=== PATIENT | male | born 1970 | race Asian ===

== ENCOUNTER 2017-12-09 13:22 | Inpatient (IN) | payer MEDICAID ==
[~2017-12-09] VITALS: Ht 182.9 cm; Wt 87.1 kg
[~2017-12-09 13:22] MED LIST: ACET-8331 PO; ACET-8386 PO; ASCO500T45 PO; ASPI81CT89 PO; ATOR20TA PO; FERR325E14 PO; LEVE250T2 PO; MIRABULK PO; SENN8.6T70 PO; ZINC220C12 PO; [UNRECOGNIZED DRUG - CODE] PO; [UNRECOGNIZED DRUG - CODE] PO; [UNRECOGNIZED DRUG - CODE] PO
[2017-12-09 13:38] VITALS: BP 130/83
--- NOTE | 2017-12-09 13:38 | NUR ---
PT TRANSFERRED PT FROM [facility] TO ER BED 1.
--- NOTE | 2017-12-09 13:50 | NUR ---
PATIENT BIBA C/O RT FEMORAL VEIN DVT x 3 DAYS. EMS STATES PT WAS REFFERED BY DR. ERWIN FROM [facility]. HX: STAGE 4 LUNG AND BRAIN CANCER, SACRAL WOUND . D AAOX4; LUNGS CLEAR BL; HR EVEN AND REGULAR; PT DENIES ANY FEVER, CP, SOB, OR COUGH AT THIS TIME; DENIES N/V/D; SKIN IS PINK/WARM/DRY; OPEN WOUND TO SACRAL AREA NOTED, PARAPLEGIA NOTED, INCONTINENT, PATIENT STATES PAIN OF 10/10 TO UPPER BODY AT THIS TIME; VSS; PATIENT POSITIONED FOR COMFORT; HOB ELEVATED; BEDRAILS UP X2; BED DOWN. ER MD MADE AWARE OF PT STATUS.
[2017-12-09] MEDS ORDERED: NACL 0.9% 1,500 ML IV SCH (14:39)
[2017-12-09] MEDS ORDERED: diphenhydrAMINE 50 MG/ML VIAL IVP ONE (14:40)
[2017-12-09] MEDS ORDERED: PIPERACILLIN/TAZOBACTAM 3.375 GM in DEXT 5% MINI-BAG PLUS 50 ML IV ONE (14:40)
[2017-12-09] MEDS ORDERED: fentaNYL 0.05 MG/ML VIAL IVP ONE (14:40)
--- NOTE | 2017-12-09 15:12 | NUR ---
US AT BEDSIDE
[2017-12-09] MEDS ORDERED: PIPERACILLIN/TAZOBACTAM 3.375 GM VIAL IV ONE (15:18)
[2017-12-09 15:31] LABS: APPEARANCE,URINE SL CLOUDY (CLEAR); BILIRUBIN,URINE NEGATIVE (NEGATIVE); BLOOD, URINE 3+ (NEGATIVE); COLOR,URINE YELLOW (YELLOW); LEUKOCYTE ESTERASE ,URINE 3+ (NEGATIVE); NITRITE, URINE POSITIVE (NEGATIVE); UGLUCOSE NEGATIVE (NEGATIVE)
[2017-12-09 15:41] LABS: WHITE BLOOD COUNT (AUTO) 16.4 K/uL (4.8-10.8)
[2017-12-09 15:44] LABS: HEMOGLOBIN 10.8 g/dL (12.0-18.0); RED BLOOD CELL COUNT(AUTO) 3.87 MIL/uL (4.20-6.10)
[2017-12-09 15:45] LABS: HEMATOCRIT 33.7 % (36-52); MEAN CORPUSCULAR HEMOGLOBIN 28 pg (27-31); MEAN CORPUSCULAR HGB CONC 32 g/dL (33-37); MEAN CORPUSCULAR VOLUME 87.1 fL (80-94); NEUTROPHILS # (AUTO) 14.3 K/uL (1.8-7.7); PLATELET COUNT (AUTO) 326 K/uL (140-450); RED CELL DISTRIBUTION WIDTH 18.7 % (11.6-13.7)
[2017-12-09 15:46] LABS: BASOPHILS # (AUTO) 0.5 K/uL (0.00-0.22); LYMPHOCYTES # (AUTO) 1.2 K/uL (2.0-11.5); MONOCYTES # (AUTO) 0.4 K/uL (0.8-1.0)
[2017-12-09 15:55] LABS: ALBUMIN 2.6 g/dL (3.4-5.0); CREATININE 0.7 mg/dL (0.7-1.3); TOTAL BILIRUBIN 0.4 mg/dL (0.0-1.0)
[2017-12-09 16:07] LABS: POTASSIUM 2.6 mmol/L (3.5-5.1)
--- NOTE | 2017-12-09 16:10 | NUR ---
CRITICAL LAB K 2.6, DR. FRANCOIS MADE AWARE.
[2017-12-09 16:11] LABS: PROTHROMBIN TIME 10.2 secs (10.8-13.4)
[2017-12-09 16:12] LABS: ANION GAP 16.4 (8-16); CARBON DIOXIDE 27.2 mmol/L (21-32)
[2017-12-09] MEDS ORDERED: HYDROmorphone 1 MG/ML AMP IVP ONE (16:30)
[2017-12-09] MEDS ORDERED: DOCUSATE SODIUM 100 MG GELCAP PO PRN (16:50)
[2017-12-09] MEDS ORDERED: LORazepam 2 MG/ML VIAL IM/IVP PRN (16:50)
[2017-12-09] MEDS ORDERED: ZOLPIDEM 5 MG TAB PO PRN (16:50)
[2017-12-09] MEDS ORDERED: PIPERACILLIN/TAZOBACTAM 3.375 GM in DEXTROSE 5% 50 ML IV ONE (16:50)
[2017-12-09] MEDS ORDERED: MORPHINE SULFATE 2 MG/ML SYR IVP PRN ×2 (16:50→18:55)
[2017-12-09] MEDS ORDERED: HYDROcodone/APAP 5/325 MG 1 TAB TAB PO PRN (16:50)
[2017-12-09] MEDS ORDERED: ONDANSETRON 4 MG/2 ML VIAL IM/IVP PRN (16:50)
[2017-12-09] MEDS ORDERED: DEXT 5% / NACL 0.45% 1,000 ML IV ONE (17:00)
--- NOTE | 2017-12-09 17:25 | NUR ---
PT ARRIVED ON THE UNIT WITH 2 ER NURSES. PT IS AWAKE AND ORIENTED. INTRODUCED MYSELF. PT IS QUADRAPLEGIC. PT V/S WITHIN NORMAL RANGE. PT HAS PAIN 10/10. PT IS ON ROOM AIR. IV ON L HAND 22G. PT HAS A LAMB CATHETER THAT HE CAME WITH FROM FACILITY PUT IN ON 12/08. HUGE SACRAL PU STAGE 4. PT IS ACCOMPANIED BY SISTER. DR ALEJANDRA IS HERE TO ASSESS PT. ASKED FOR REPLACEMENT OF LAMB CATH. RECTAL TUBE. PT IS IMPACTED, WILL NEED TO DO SOAP SUDS ENEMA FIRST. WILL ENDORSE TO BAND RIPSAW OPERATOR. WILL AWAIT ORDERS.
--- NOTE | 2017-12-09 17:30 | NUR ---
Patient will be admitted to care of DR. BERRIOS. Admited to TELE. Will go to room 110 B. Belongings list completed. Report to SYEDA NAIR AT BEDSIDE, PT IS IN STABLE CONDITION AT THIS TIME.
[2017-12-09 17:50] VITALS: BP 133/86
[2017-12-09] MEDS ORDERED: NACL 0.9% 1,000 ML IV SCH (18:00)
[2017-12-09 18:10] LABS: RBC,URINE 20-50 /HPF (0-5)
[2017-12-09] MEDS ORDERED: HEPARIN PER PHARMACY MC PRN (18:25)
[2017-12-09] MEDS: hePARIN / DEXT 5% PREMIX 250 ML IV SCH (18:55)
--- NOTE | 2017-12-09 18:55 | NUR ---
[facility] bed ordered P500 and confirmation number is [id number]
[2017-12-09] MEDS ORDERED: KCL 20 MEQ/WATER INJ PREMIX 200 ML IV SCH (19:00)
[2017-12-09] MEDS ORDERED: POTASSIUM CHLORIDE 10 MEQ TABER PO SCH (19:00)
--- NOTE | 2017-12-09 19:00 | NUR ---
ADMINISTERED HEPARIN BOLUS 5700U AND STARTED DRIP 1500U. PT TOLERATED WELL. IN GREAT DEAL OF PAIN. AWAITING DR ORDERS.
--- NOTE | 2017-12-09 19:20 | NUR ---
ADMINISTERED DILAUDID 2 MG. PT TOLERATED WELL. WILL ENDORSE PT.
[2017-12-09] MEDS ORDERED: VANCOMYCIN PER PHARMACY MC PRN (19:30)
[2017-12-09] MEDS ORDERED: HYDROmorphone PFS 2 MG/ML SYR IVP SCH (19:30)
--- NOTE | 2017-12-09 19:30 | NUR ---
ENDORSED PT TO THE BREAKING MACHINE OPERATOR NURSE AT BEDSIDE FOR CONTINUITY OF CARE. SHE WILL DO THE ADMISSION. PT IN STABLE CONDITION.
--- NOTE | 2017-12-09 19:35 | NUR ---
RECEIVED REPORT FROM DAY SHIFT RN, PATIENT RESTING IN BED, SISTER AT THE BEDSIDE. NO S/S OF DISTRESS NOTED, RESPIRATION EVEN AND UNLABORED, ON ROOM AIR. HEPARIN DRIP RUNNING AT 1500 UNITS/HR. SAFETY MEASURE ENSURED, WILL CONTINUE TO MONITOR.
--- NOTE | 2017-12-09 19:55 | NUR ---
1954 SPUTUM SAMPLE WAS COLLECTED AND TAKEN TO LAB
[2017-12-09 20:00] VITALS: BP 118/75
[2017-12-09] MEDS ORDERED: ARGININE PO SCH (21:00)
[2017-12-09] MEDS ORDERED: GLUTAMINE PO SCH (21:00)
[2017-12-09] MEDS ORDERED: [UNRECOGNIZED DRUG - OTHER] PO SCH (21:00)
[2017-12-09] MEDS ORDERED: NON-FORMULARY ITEM (Simethicone 80 MG) PO SCH (21:00)
[2017-12-09] MEDS: FERROUS SULFATE 325 MG TABEC PO SCH (21:22)
[2017-12-09] MEDS: levETIRAcetam 500 MG TAB PO SCH (21:22)
[2017-12-09] MEDS: SENNA 8.6 MG TAB PO SCH (21:23)
[2017-12-09] MEDS: ATORVASTATIN 20 MG TAB PO SCH (21:23)
[2017-12-09] MEDS: POLYETHYLENE GLYCOL 17 GM/PKT PO SCH (21:23)
[2017-12-09] MEDS: PIPER/TAZO 3.375GM/D5W PREMIX 50 ML IV SCH (21:24)
[2017-12-09] MEDS: METHOCARBAMOL 500 MG TAB PO SCH (21:37)
[2017-12-09] MEDS ORDERED: VANCOMYCIN 1,500 MG in DEXTROSE 5% 500 ML IV SCH (22:00)
[2017-12-09 22:10] LABS: ANION GAP 12.2 (8-16); CARBON DIOXIDE 31.2 mmol/L (21-32); CREATININE 0.5 mg/dL (0.7-1.3)
--- NOTE | 2017-12-09 22:26 | NUR ---
MADE SMALL AMOUNT OF BOWEL MOVEMENT, CLEANED PATIENT BUT REFUSED TO BE POSITIONED TO THE RIGHT OR LEFT SIDE. PATIENT STATED," IT'S OKAY, I AM OKAY WITH THIS POSITION. YOU CAN TURN ME TOMORROW." EDUCATED PATIENT THE IMPORTANCE OF BEING TURNED EVERY 2 HOURS, PATIENT VERBALIZED UNDERSTANDING, SAID," I AM COMFORTABLE NOW." SAFETY MEASURE ENSURED, WILL CONTINUE TO MONITOR.
[2017-12-09] MEDS ORDERED: VANCOMYCIN 1,000 MG VIAL ONE (22:38)
[2017-12-09 22:51] LABS: POTASSIUM 2.4 mmol/L (3.5-5.1)
[2017-12-09 23:01] LABS: CHOL/HDL RATIO 2.1 (1-4.5); MAGNESIUM 1.8 mg/dL (1.8-2.4); PHOSPHORUS 3.3 mg/dL (2.5-4.9); THYROID STIMULATING HORMONE 0.09 uIU/mL (0.34-3.74)
[2017-12-09 23:15] VITALS: BP 109/75
--- NOTE | 2017-12-09 23:15 | NUR ---
BP 109/75, HR 110, PATIENT STATED PAIN 10/, INFORMED DR. LEVI REGARDING THE BP , DR. LEVI SAID," IT'S OKAY TO GIVE MORPHINE 4MG.
--- NOTE | 2017-12-09 23:55 | NUR ---
PATIENT IS SLEEPING, BP 15/74 HR 63, RR 20, NO S/S OF DISTRESS NOTED, WILL CONTINUE TO MONITOR.
[2017-12-10] VITALS (7 sets, daily range): BP systolic 105–134; BP diastolic 71–116
--- NOTE | 2017-12-10 01:35 | NUR ---
SOAP JANAE ENEMA ADMINISTERED, PATIENT TOLERATED WELL. PAIN 02/26, WILL INFORM
--- NOTE | 2017-12-10 01:48 | NUR ---
BP 139/99 HR 84, RR 20, PAIN 10/10, WILL ADMINISTER ONE TIME DOSE DILAUDID 2MG PO ORDERED.
[2017-12-10] MEDS ORDERED: HYDROmorphone 2 MG TAB PO SCH (02:00)
--- NOTE | 2017-12-10 02:00 | NUR ---
PTT 95.3, HEPARIN HELD
--- NOTE | 2017-12-10 02:07 | NUR ---
INFORMED DR. LEVI OF BLOOD NOTED IN THE URINE. DR LEVI SAID," OKAY, PATIENT HAS LAMB CHRONICALLY, JUST MONITORING FOR NOW."
--- NOTE | 2017-12-10 02:27 | NUR ---
PATIENT IS SLEEPING, BP 113/75, HR 63, RR 19, O2SAT 95%, NO S/S OF DISTRESS NOTED, WILL CONTINUE TO MONITOR.
[2017-12-10] MEDS: hePARIN / DEXT 5% PREMIX 250 ML IV SCH ×3 (03:00→21:18)
--- NOTE | 2017-12-10 03:00 | NUR ---
START HEPARIN AT 240 UNITS/HR ORDERED. Addendum: 12/10/17 at 0309 by Michael Crowley RN STARTED HEPARIN AT 1260 UNITS/HR ORDERED
--- NOTE | 2017-12-10 03:10 | NUR ---
MOVED PATIENT TO ROOM 118, AND MOVED PATIENT TO WOUND BED, AND WOUND BED IS ACTIVATED.
--- NOTE | 2017-12-10 03:42 | NUR ---
CHECKED ON PT FOR HHNTX. PT REFUSED AT THIS TIME. SATS ON ROOM AIR 97%. NO SOB NOTED. PT WILL CAll if he wants a hhntx
--- NOTE | 2017-12-10 04:05 | NUR ---
DR. LEVI IS AWARE THAT PATIENT DID NOT PASS LARGE STOOL. INFORMED DR. LEVI THAT I HAS NOT PUT RECTAL TUBE YET. DR. LEVI SAID," IT'S OKAY, I DON'T WANT YOU FORCE IT, BECAUSE PTT IS HIGH."
[2017-12-10] MEDS: PIPER/TAZO 3.375GM/D5W PREMIX 50 ML IV SCH ×3 (05:29→21:15)
--- NOTE | 2017-12-10 07:40 | NUR ---
ENDORSED PLAN OF CARE TO DAY SHIFT RN, PATIENT IS IN STABLE CONDITION.
--- NOTE | 2017-12-10 07:41 | NUR ---
RECEIVED REPORT FROM THE RHEUMATOLOGIST NURSE AT BEDSIDE FOR CONTINUITY OF CARE. PT IS AWAKE AND ORIENTED. INTRODUCED MYSELF AND UPDATED THE BOARD. V/S WITHIN NORMAL LIMITS. C/O PAIN. WILL SEE WHEN HIS NEXT DOSE IS DUE. SKIN- SACRAL PU STAGE 4. PT IS ON A WOUND CARE BED. PT HAS 2 IV'S ON R AND L HAND 22G. L HAND -HEP DRIP NOW RUNNING 12.6ML/HR. AWAITING 9AM PTT DRAWING. R HAND- POTASSIUM RUNNING. PT'S PAIN IS NOT BEING MANAGED WELL. WOULD LIKE TO TALK TO MD REGARDING HOSPICE CARE. NO RECTAL TUBE YET. SOAP SUDS WAS UNSUCCESSFUL. PT REFUSED ENEMA LAST NIGHT. WILL CONTINUE TO MONITOR PT.
[2017-12-10] MEDS ORDERED: LACTULOSE 20 GM/30 ML UDC PO SCH (08:00)
[2017-12-10] MEDS ORDERED: POLYETHYLENE GLYCOL 17 GM/PKT PO SCH (08:00)
[2017-12-10] MEDS ORDERED: SENNA 8.6 MG TAB PO SCH (08:00)
[2017-12-10] MEDS ORDERED: MULTIVITAMIN WITH MINERALS PO SCH (09:00)
[2017-12-10] MEDS: MULTIVITAMIN/MINERALS 1 TAB PO SCH (09:00)
[2017-12-10] MEDS: ASCORBIC ACID 500 MG TAB PO SCH (09:00)
[2017-12-10] MEDS ORDERED: LACTOBACILLUS RHAMNOSUS GG 1 EACH CAP PO SCH (09:00)
[2017-12-10] MEDS: LACTOBACILLUS RHAMNOSUS GG 1 EACH CAP PO SCH (09:01)
[2017-12-10] MEDS: METHOCARBAMOL 500 MG TAB PO SCH ×4 (09:01→21:19)
[2017-12-10] MEDS: levETIRAcetam 500 MG TAB PO SCH ×2 (09:02→21:19)
[2017-12-10] MEDS: FERROUS SULFATE 325 MG TABEC PO SCH ×2 (09:02→21:19)
[2017-12-10] MEDS: SIMETHICONE 80 MG TAB.CHEW PO SCH ×4 (09:02→21:19)
[2017-12-10] MEDS: ZINC SULF 220 MG CAP PO SCH (09:02)
[2017-12-10] MEDS: VANCOMYCIN 1GM/DEXT 5% PREMIX 200 ML IV SCH ×2 (09:03→17:07)
[2017-12-10] MEDS: HYDROmorphone 1 MG/ML AMP IVP PRN ×4 (09:04→19:23)
[2017-12-10 09:14] LABS: HEMATOCRIT 34.5 % (36-52); HEMOGLOBIN 11.3 g/dL (12.0-18.0); MEAN CORPUSCULAR HEMOGLOBIN 29 pg (27-31); MEAN CORPUSCULAR VOLUME 87.2 fL (80-94); RED BLOOD CELL COUNT(AUTO) 3.96 MIL/uL (4.20-6.10); WHITE BLOOD COUNT (AUTO) 16.3 K/uL (4.8-10.8)
--- NOTE | 2017-12-10 09:14 | NUR ---
ADMINISTERED MORNING MEDS, INCLUDING DILAUDID. PT TOLERATED WELL. STILL UPSET ABOUT NOT HAVING ENOUGH PAIN MEDS. PAIN IS NOT BEING MANAGED WELL PER PT. NEED ORAL SUCTIONING. WILL CONTACT R/T. WILL CONTINUE TO MONITOR PT.
[2017-12-10 09:15] LABS: MEAN CORPUSCULAR HGB CONC 33 g/dL (33-37); PLATELET COUNT (AUTO) 306 K/uL (140-450); RED CELL DISTRIBUTION WIDTH 18.5 % (11.6-13.7)
[2017-12-10 09:39] LABS: ANION GAP 9.6 (8-16); CARBON DIOXIDE 34.5 mmol/L (21-32); CREATININE 0.4 mg/dL (0.7-1.3); POTASSIUM 3.1 mmol/L (3.5-5.1)
[2017-12-10 09:49] LABS: LYMPHOCYTES % (MANUAL) 13 % (20-46); MONOCYTES % (MANUAL) 5 % (5-12)
[2017-12-10] MEDS ORDERED: LIDOCAINE MPF 1% 5mL VIAL INJ SCH (10:00)
[2017-12-10] MEDS: ALBUTEROL SULFATE/IPRATROPIU 3 ML SOL IH PRN (10:02)
--- NOTE | 2017-12-10 10:10 | NUR ---
PTT RESULTS CAME IN, PER PHARMACY, BOLUS 5700U AND LEAVE AT CURRENT RATE. WILL DO SO AFTER THE CENTRAL LINE PROCEDURE. OK PER MD AND PHARMACIST AWARE.
--- NOTE | 2017-12-10 10:22 | NUR ---
DR ALEJANDRA AND THE [employer] ARE HERE TO DO THE CENTRAL LINE. ALL SUPPLIES THERE.
--- NOTE | 2017-12-10 10:24 | NUR ---
TIME OUT DONE AT BEDSIDE W/ MYSELF, DR. ALEJANDRA, AND [employer] TECH.
--- NOTE | 2017-12-10 10:25 | NUR ---
DR ARIK ALEJANDRA AT BEDSIDE FOR CENTRAL LINE PROCEDURE MD GAVE GEOPHYSICAL DATA TECHNICIAN VERBAL ORDER "OK" TO PLACE OXYGEN ORDER FOR GREATER THAN 92%
--- NOTE | 2017-12-10 10:37 | NUR ---
PATIENT HAS BEEN SCREENED AND CATEGORIZED HIGH NUTRITION RISK. PATIENT WILL BE SEEN WITHIN 1-2 DAYS OF ADMISSION. 12/10/17 12/11/[address]
--- NOTE | 2017-12-10 10:38 | NUR ---
HEPARIN AND LIDOCAINE WAS USED FOR CENTRAL LINE INSERTION.
[2017-12-10] MEDS ORDERED: SODIUM FERRIC GLUCONATE 125 MG in NACL 0.9% 100 ML IV SCH (12:00)
--- NOTE | 2017-12-10 12:35 | NUR ---
ADMINISTERED SCHEDULED MEDS. PT TOLERATED WELL. WILL CONTINUE TO MONITOR PT. PER PROTOCOL AND PER PHARMACY, 5700 U BOLUS OF HEPARIN AND CONTINUE WITH CURRENT RATE. WILL SCHEDULE A PTT READING IN 6 HRS.
--- NOTE | 2017-12-10 13:41 | NUR ---
2 OR NURSES HERE TO TAKE PT FOR DEBRIDEMENT OF THE SACRAL PU. CONSENT IN CHART.
[2017-12-10 13:44] LABS: MAGNESIUM 1.9 mg/dL (1.8-2.4); PHOSPHORUS 2.7 mg/dL (2.5-4.9)
--- NOTE | 2017-12-10 14:01 | NUR ---
Supervisor Rolling Room Note: Per , she spoke with patient/patient's family regarding [facility] evaluation and they are in agreement. I notified Daysiradha CappsHank from [facility] of hospice evnorma. I faxed patient's clinical information to [facility], fax . Addendum: 12/10/17 at 1406 by Yanique Negron SS Per Merritt from 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
[2017-12-10] MEDS ORDERED: BUPIVACAINE-MPF 0.25% 30 ML VIAL INJ ONE (14:09)
--- NOTE | 2017-12-10 14:22 | NUR ---
SENIOR INFRASTRUCTURE ARCHITECT NOTE 1400 SENIOR INFRASTRUCTURE ARCHITECT attempted to see pt for swallow evaluation. Per SYEDA Burris, pt taken for surgical debridement and CT after, and requested a hold on services today. Per SYEDA Burris, pt has been initiated on a PO diet, and confirmed pt will have hospice evaluation. SENIOR INFRASTRUCTURE ARCHITECT voiced agreement, and requested a f/u with MD if they wish to cancel or carry on with swallow evaluation tomorrow. SYEDA Burris voiced agreement.
[2017-12-10] MEDS ORDERED: MORPHINE SULFATE 4 MG/ML SYR ONE (14:30)
[2017-12-10 15:08] LABS: FERRITIN 308 ng/mL (30-400); T4 (THYROXINE) 6.9 ug/dL (4.5-12.0)
--- NOTE | 2017-12-10 15:15 | NUR ---
PT ARRIVED BACK ON THE FLOOR FROM OR. PT HAD A DEBRIDEMENT OF THE SACRAL PRESSURE ULCER. PT TOLERATED WELL. V/S WITHIN NORMAL RANGE. REQUESTING PAIN MED. WILL CONTINUE TO MONITOR PT.
--- NOTE | 2017-12-10 15:16 | NUR ---
12/10/17 RD INITIAL ASSESSMENT COMPLETED PLEASE REFER TO NUTRITION ASSESSMENT UNDER CARE ACTIVITY FOR ESTIMATED NUTRITIONAL NEEDS. 1. CONTINUE NPO MEDICALLY APPROPIRATE. 2. IF MEDICALLY STABLE CONSIDER ADVANCING DIET TO REGULAR TOLERATED. 3. RD TO FOLLOW-UP 2-3 DAYS, HIGH RISK. JOHN PEREZ, INGRID
--- NOTE | 2017-12-10 16:21 | NUR ---
Assistant Professor Of History Note: Per , she spoke with patient regarding hospice evaluation and she stated patient has capacity to make his own medical decisions and would like to obtain education about hospice services. Per Daysi from [facility] , she will come to hospital and talk to patient.
[2017-12-10] MEDS ORDERED: ALBUTEROL SULFATE/IPRATROPIU 3 ML SOL IH PRN (17:00)
--- NOTE | 2017-12-10 17:22 | NUR ---
PT BROUGHT BACK FROM CT, REPOSITIONED PT, DID SWALLOW TEST. PASSED. NO ISSUES WITH SWALLOWING. ADMINISTERED A NEW BAG OF HEPARIN. ADMINISTERED SCHEDULED ORAL MEDS AND VANCO. PT TOLERATED WELL. PT IS ACCOMPANIED BY GIRLFRIEND AT BEDSIDE. PT IS READY TO EAT. NOTIFIED DR ALEJANDRA REGARDING SWALLOW TEST. WILL ORDER A DINNER TRAY. WILL CONTINUE TO MONITOR PT.
--- NOTE | 2017-12-10 17:30 | NUR ---
ATTEMPTED TO DO A DIGITAL REMOVAL OF THE RECTUM. PT REFUSED. HE STATED THAT HE HAS BEEN IN AND OUT ALL DAY DOING PROCEDURES AND HE WANTS TO BE LEFT ALONE. NO BM AT ALL TODAY. WILL ENDORSE TO WEATHERIZATION ADMINISTRATOR.
[2017-12-10] MEDS ORDERED: KCL 20 MEQ/WATER INJ PREMIX 200 ML IV SCH (19:00)
[2017-12-10 19:12] LABS: ANION GAP 11.3 (8-16); CARBON DIOXIDE 32.5 mmol/L (21-32)
[2017-12-10 19:16] LABS: POTASSIUM 2.8 mmol/L (3.5-5.1)
[2017-12-10 19:18] LABS: CREATININE 0.6 mg/dL (0.7-1.3)
--- NOTE | 2017-12-10 19:20 | NUR ---
ENDORSED PT TO THE SENIOR FRONT END DEVELOPER NURSE AT BEDSIDE FOR CONTINUITY OF CARE. PT IS IN STABLE CONDITION.
--- NOTE | 2017-12-10 20:00 | NUR ---
PTT 128.2 HEPARIN HELD PER PROTOCOL. MADE DR. LEVI AWARE THAT PTT 128.2, BLOOD NOTED IN THE URINE. DR. LEVI SAID," FOLLOW THE HEPARIN PROTOCOL, HOLD FOR 1 HOUR AND DECREASE THE DOSE ORDERED."
--- NOTE | 2017-12-10 20:36 | NUR ---
INFORMED DR. LEVI DAY SHIFT WAS UNABLE TO PERFORM MANUAL DISIMPACTION, AND RECTAL TUBE WAS NOTED PLACED. DR. LEVI SAID," HOLD THE MANUAL DISIMPACTION AND RECTAL TUBE, PTT IS TOO HIGH."
[2017-12-10] MEDS: POLYETHYLENE GLYCOL 17 GM/PKT PO SCH (21:18)
[2017-12-10] MEDS: ATORVASTATIN 20 MG TAB PO SCH (21:19)
[2017-12-10] MEDS: SENNA 8.6 MG TAB PO SCH (21:20)
--- NOTE | 2017-12-10 21:28 | NUR ---
DUE MEDICATION GIVEN, PATIENT TOLERATED WELL. NO S/S OF DISTRESS NOTED, REPOSITIONED PATIENT, HEAD OF BED ELEVATED. CALL LIGHT WITHIN REACH, SAFETY MEASURE ENSURED, WILL CONTINUE TO MONITOR.
--- NOTE | 2017-12-10 22:08 | NUR ---
HR 133 NOTED ON BIOLOGY FACULTY MEMBER, ASSESSED PATIENT AT THE BEDSIDE, PATIENT WAS SLEEPING, EASY TO AROUSE, SAID," I AM OKAY." BP 141/88, O2SAT 96, RR 19. ADJUSTED POSITION PATIENT REQUESTED, HEAD OF BED ELEVATED, WOUND BED MODE ACTIVE, SAFETY MEASURE ENSURED, WILL CONTINUE TO MONITOR.
--- NOTE | 2017-12-10 23:25 | NUR ---
HEPARIN IS D/C ORDERED.
--- NOTE | 2017-12-10 23:49 | NUR ---
PATIENT WAS SLEEPING, RESPIRATION EVEN AND UNLABORED, EASY TO AROUSE, VITAL SIGNS STABLE, OFFERED TO REPOSITION HIM, PATIENT REFUSED, " I AM OKAY ON MY BACK, LEAVE ME ALONE, I AM VERY TIRED." EDUCATED PATIENT THE IMPORTANCE OF TURNING EVERY TO 2 HOURS. PATIENT STATED," I AM REALLY TIRED, I WANT TO SLEEP, I AM COMFORTABLE NOW." SAFETY MEASURE ENSURED, WILL CONTINUE TO MONITOR.
[2017-12-11] MEDS: VANCOMYCIN 1GM/DEXT 5% PREMIX 200 ML IV SCH (00:29)
[2017-12-11] MEDS ORDERED: NACL 0.9% 1,000 ML IV ONE (01:25)
--- NOTE | 2017-12-11 01:36 | NUR ---
EKG SHOWING HEART RATE 133, ASSESSED PATIENT AT BEDSIDE, BP 73/45, NOTIFIED DR. LEVI. DR. LEVI CAME AND ASSESSED THE PATIENT AT THE BEDSIDE. RECEIVED ORDER OF 1L NORMAL SALINE BOLUS.
[2017-12-11] MEDS ORDERED: KCL 20 MEQ/WATER INJ PREMIX 200 ML IV SCH (02:00)
[2017-12-11] MEDS: HYDROmorphone 1 MG/ML AMP IVP PRN ×2 (02:12→06:54)
--- NOTE | 2017-12-11 02:12 | NUR ---
BP 115/74, HR 112, PATIENT STATED PAIN 02/26, DR. LEVI SAID," OKAY TO GIVE DILAUDID." DILAUDID ADMINISTERED ORDERED.
--- NOTE | 2017-12-11 02:35 | NUR ---
PATIENT FELL ASLEEP, BP 74/45, HR 114, WAKE PATIENT UP AND TALKED TO HIM, RECHECK THE BP READ 133/78, WAIT AT THE BEDSIDE, RECHECK THE BP WHEN PATIENT FELL ASLEEP AGAIN, BP READ 68/42, WAKE PATIENT UP AGAIN, RECHECK THE BP, READ 149/87, HR 122. INFORMED DR. LEVI OF THE BLOOD PRESSURE READINGS, NO NEW ORDER RECEIVED AT THIS TIME. WILL CONTINUE TO MONITOR.
[2017-12-11] MEDS ORDERED: POTASSIUM CHLORIDE 10 MEQ TABER PO SCH ×2 (03:00→09:00)
--- NOTE | 2017-12-11 03:00 | NUR ---
K-DUR GIVEN ORDERED, PATIENT TOLERATED WELL. BP 103/66 HR 96, O2SAT 96%, RR 19
--- NOTE | 2017-12-11 04:14 | NUR ---
BP 164/96, HR 112, PATIENT IS SLEEPING, NO S/S OF DISTRESS NOTED, RESPIRATION EVEN AND UNLABORED. MADE DR. LEVI AWARE OF PATIENT'S BP AND HEART RATE. NO ORDER RECEIVED AT THIS TIME.
[2017-12-11 04:17] VITALS: BP 164/96
[2017-12-11] MEDS: PIPER/TAZO 3.375GM/D5W PREMIX 50 ML IV SCH ×3 (05:14→21:16)
--- NOTE | 2017-12-11 06:37 | NUR ---
DR. ALEJANDRA ASSESSED PATIENT AT THE BEDSIDE, AND ASKED ME TO GIVE PATIENT PAIN MEDICATION.
--- NOTE | 2017-12-11 07:03 | NUR ---
BP 144/88 HR 110, DILAUDID GIVEN ORDERED. PATIENT IS IN STABLE CONDITION
--- NOTE | 2017-12-11 07:22 | NUR ---
ENDORSED PLAN OF CARE TO DAY SHIFT RN, PATIENT IS IN STABLE CONDITION.
[2017-12-11 08:00] VITALS: BP 119/77
[2017-12-11] MEDS: ASCORBIC ACID 500 MG TAB PO SCH (08:32)
[2017-12-11] MEDS: MULTIVITAMIN/MINERALS 1 TAB PO SCH (08:32)
[2017-12-11] MEDS: METHOCARBAMOL 500 MG TAB PO SCH ×4 (08:32→21:17)
[2017-12-11] MEDS: FERROUS SULFATE 325 MG TABEC PO SCH ×2 (08:33→21:17)
[2017-12-11] MEDS: levETIRAcetam 500 MG TAB PO SCH ×2 (08:33→21:16)
[2017-12-11] MEDS: SIMETHICONE 80 MG TAB.CHEW PO SCH ×4 (08:33→21:17)
[2017-12-11] MEDS: LACTOBACILLUS RHAMNOSUS GG 1 EACH CAP PO SCH (08:33)
[2017-12-11] MEDS: ZINC SULF 220 MG CAP PO SCH (08:33)
[2017-12-11] MEDS: HYDROmorphone PFS 2 MG/ML SYR IVP PRN ×5 (09:08→21:19)
[2017-12-11 10:04] LABS: HEMATOCRIT 35.7 % (36-52); HEMOGLOBIN 11.5 g/dL (12.0-18.0); MEAN CORPUSCULAR HEMOGLOBIN 28 pg (27-31); MEAN CORPUSCULAR HGB CONC 32 g/dL (33-37); MEAN CORPUSCULAR VOLUME 87.2 fL (80-94); PLATELET COUNT (AUTO) 282 K/uL (140-450); RED CELL DISTRIBUTION WIDTH 18.6 % (11.6-13.7); WHITE BLOOD COUNT (AUTO) 23.1 K/uL (4.8-10.8)
[2017-12-11 10:20] LABS: ANION GAP 11.4 (8-16); CARBON DIOXIDE 31.8 mmol/L (21-32); CREATININE 0.5 mg/dL (0.7-1.3); POTASSIUM 3.2 mmol/L (3.5-5.1)
[2017-12-11 10:24] LABS: MAGNESIUM 1.6 mg/dL (1.8-2.4); PHOSPHORUS 2.9 mg/dL (2.5-4.9)
[2017-12-11 10:45] LABS: EOSINOPHILS % (MANUAL) 1 % (0-4); LYMPHOCYTES % (MANUAL) 23 % (20-46); MONOCYTES % (MANUAL) 5 % (5-12)
[2017-12-11 12:00] VITALS: BP 115/73
[2017-12-11 13:02] LABS: TRANSFERRIN 184 mg/dL (200-370)
--- NOTE | 2017-12-11 13:35 | NUR ---
1300 MET WITH PATIENT AT BEDSIDE. PER PATIENT HE WOULD LIKE TO SPEAK TO HOSPICE ABOUT THEIR SERVICE. INFORMED PT THAT THE LIAISON WOULD BE CONTACTED TO VISIT AND PROVIDE HIM SOME INFORMATION. PT DID VERIFY THAT HIS SISTER MATT IS THE NOTIFYING CONTACT AND HIS OTHER SISTER ADRIÁN TO BE ALSO LISTED A CONTACT.
[2017-12-11] MEDS: THERAHONEY GEL 42.5 GM TP SCH (13:45)
--- NOTE | 2017-12-11 13:45 | NUR ---
WOUND DRESSING CHANGE PERFORMED WITH WOUND CARE NURSE AT BEDSIDE. PICTURES TAKEN. PATIENT TOLERATED WELL. PATIENT TURNED AND REPOSITIONED FOR COMFORT. WILL CONTINUE TO MONITOR
[2017-12-11] MEDS ORDERED: THERAHONEY GEL 42.5 GM TP PRN (13:50)
--- NOTE | 2017-12-11 14:43 | NUR ---
WOUND CARE EVALUATION NOTE: REASON FOR WOUND EVALUATION: MULTIPLE PRESSURE INJURIES SKIN ASSESSMENT DONE WITH PRIMARY RN ON THIS 47 Y/O MALE PATIENT FROM [facility] TO [facility], WITH INITIAL DIAGNOSIS OF RLE DVT. PAST MEDICAL HISTORY INCLUDE CA, SEIZURE, C SPINE INJURY WITH QUADRIPLEGIA, OPIATE DEPENDENCE AND HLD. PT IS A RESIDENT AT [facility] SINCE 2009. PT ADMITTED WITH MULTIPLE UN-STAGEABLE PRESSURE INJURIES. ALL ABOVE INFORMATION WAS OBTAINED FROM THE ADMISSION H&P AND PT. PT IS AAX4. PT SKIN WARM TO TOUCH, TOENAILS ARE SHORT, +3 EDEMA TO RIGHT FOOT , BLE WITH HAIR GROWTH AND BILATERAL PEDAL PULSES PRESENT AND NORMAL, ABDOMEN DISTENDED, #16 FR F/C PATENT AND INTACT WITH CLEAR URINE OUTPUT IN MODERATE AMOUNT. INCONTINENT OF BOWEL. PLAN OF CARE AND PRESSURE PREVENTIVE MEASURES DISCUSSED WITH PRIMARY RN AND PT. PT VERBALIZES UNDERSTANDING. COMORBIDITIES FOR WOUND HEALING: INFECTION, DM, HOB ELEVATED MAJORITY OF THE DAY FOR MEDICAL CONDITIONS, CHRONIC INCONTINENT OF BOWEL. INTEGUMENTARY: -S/P DEBRIDEMENT PRESSURE INJURY STAGE 4 TO RIGHT ISCHIUM EXTENDED TO RIGHT POSTERIOR THIGH, BONE AND MUSCLE OBSERVED, [id number] WOUND BED IS RED, MODERATE AMOUNT SEROSANGUINEOUS DRAINAGE, NO ODOR, IRREGULAR WOUND SHAPR, WOUND EDGE FLAT. --S/P DEBRIDEMENT PRESSURE INJURY STAGE 4 TO LEFT ISCHIUM EXTENDED TO RIGHT POSTERIOR THIGH, BONE AND MUSCLE OBSERVED, WITH TUNNELING TO 12 OCLOCK NEXT TO PERIANAL, [id number] WOUND BED IS RED AND 10% DARK BROWN SLOUGH TO CENTER OF WOUND, MODERATE AMOUNT SEROSANGUINEOUS DRAINAGE, NO ODOR, IRREGULAR WOUND SHAPE. - S/P DEBRIDEMENT SACROCOCCYX PRESSURE ULCER INJURY STAGE 4, 5X3X0.5CM, WOUND BED COLOR WHITE, BERENICE-WOUND DENUDED, MODERATE AMOUNT OF SEROSANGUINEOUS DRAINAGE, NO ODOR AFTER WOUND CLEANSED, SURROUNDING SKIN REDNESS AND DRYNESS EXTENDED TO RIGHT AND LEFT BUTTOCK 12X9CM INDICATED FURTHER DAMAGE -RIGHT LATERAL LE MULTIPLES BRUISES -LEFT 4TH TOE BLACK SCAB 1X0.3 CM RECOMMENDATIONS: -RECTAL BAG NOT RECOMMEND DUE TO TUNNELING NEXT TO PERIANAL AREA. -CLEANSE SACROCOCCYX , LEFT AND RIGHT ISCHIUM WOUNDS WITH NS, PAT DRY, APPLY THERAHONEY GEL TO WOUND BED AND PACK WITH MOIST KERLIX GAUZES, COVER WITH DRY DRESSING CHANGE QD AND PRN IF SOILING -APPLY Z-GUARD TO R/L BUTTOCKS BIDWC AND PRN IF SOILING -TURN AND REPOSITION PATIENT Q2H -ASSESS AND MONITOR SKIN CONDITION DURING POSITION CHANGE -OFFLOAD BILATERAL HEELS BY PLACING PILLOWS UNDER CALVES AT ALL TIMES, UNLESS OTHERWISE CONTRAINDICATED -KEEP SKIN CLEAN AND DRY AT ALL TIMES. -PRESSURE REDISTRIBUTION SURFACE THERAPY RECOMMENDATIONS DISCUSSED WITH PRIMARY RN AND DR. VASQUEZ WILL FOLLOW UP PATIENT Q 7-10 DAYS AND PRN. PLEASE CONTACT WOUND CARE NURSE FOR ANY QUESTIONS AND CHANGES IN WOUND CONDITION.
--- NOTE | 2017-12-11 15:05 | NUR ---
PATIENT MEDICATED FOR PAIN. PATIENT'S FAMILY PRESENT AT BEDSIDE. NO S/S OF DISTRESS NOTED
--- NOTE | 2017-12-11 15:46 | NUR ---
REHAB NOTES PER RN, Pt "SWALLOWS FINE, DOES NOT NEED SWALLOW EVAL", RN TO REQUEST CANCELLATION FOR SWALLOW EVAL; Pt HAS HOSPICE EVAL PER RN.
[2017-12-11 17:19] VITALS: BP 130/73
--- NOTE | 2017-12-11 17:19 | NUR ---
TEMP 100.3. PRN TYLENOL ADMINISTERED. COOLING MEASURES IN PLACE. WILL CONTINUE TO MONITOR
--- NOTE | 2017-12-11 17:30 | NUR ---
EKG RESULTS GIVEN TO DR LOPEZ. DR INFORMED THAT PATIENT'S HR WAS AT 170 AT ONE POINT
[2017-12-11] MEDS: ACETAMINOPHEN 325 MG TAB PO PRN (17:32)
--- NOTE | 2017-12-11 18:26 | NUR ---
TEMP RECHECKED ORALLY. TEMP 99.1. NO S/S OF DISTRESS NOTED
--- NOTE | 2017-12-11 19:30 | NUR ---
PATIENT REPORT GIVEN AT BEDSIDE. PATIENT ENDORSED IN STABLE CONDITION. HOSPICE NURSE PRESENT IN THE ROOM SPEAKING WITH THE PATIENT
--- NOTE | 2017-12-11 19:31 | NUR ---
RECEIVED REPORT FROM DAY SHIFT NURSE. AAOX3. [facility] HOSPICE NURSE IN THE ROOM TALKING TO PT . PT HAS LAMB CATH IN PLACE DRAINING YELLOW URINE. PT HAS RIGHT IJ TRIPLE LUMEN, DRESSING CLEAN, DRY AND INTACT. NO C/O PAIN AT THIS TIME. NO RESP DISTRESS NOTED. PT ON ROOM AIR. FALL AND SEIZURE PRECAUTION IN PLACE.
[2017-12-11] MEDS ORDERED: NACL 0.9% 500 ML IV ONE ×2 (19:35→20:40)
--- NOTE | 2017-12-11 19:40 | NUR ---
HOSPICE NURSE STILL IN THE ROOM TALKING TO PT AND PT'S SISTER ON THE PHONE. PT'S SISTER REFUSED PT TO BE UNDER HOSPICE. PT ALSO CHANGE HIS MIND AND DOESNT WANT TO BE A HOSPICE PT. RESIDENTS MD IN THE ROOM AND AWARE OF PT AND PT'S SISTER DECISION ABOUT REFUSING HOSPICE. V/S TAKEN. HEART RATE AT 160'S. DR SPANGLER ORDERED NS 500 ML BOLUS. NO RESP DISTRESS NOTED.
[2017-12-11 20:00] VITALS: BP 106/86
--- NOTE | 2017-12-11 21:15 | NUR ---
DR. SPANGLER MADE AWARE OF PT'S PTT. PER , IT'S OKAY TO GIVE HEPARIN 5000 UNITS SUBQ.
[2017-12-11] MEDS: SENNA 8.6 MG TAB PO SCH (21:17)
[2017-12-11] MEDS: POLYETHYLENE GLYCOL 17 GM/PKT PO SCH (21:18)
--- NOTE | 2017-12-11 21:20 | NUR ---
DUE MEDS GIVEN. PT TOLERATED WELL. DR. BRITO ORDERED ANOTHER NS 500 ML BOLUS.
[2017-12-11] MEDS: ATORVASTATIN 20 MG TAB PO SCH (21:29)
--- NOTE | 2017-12-11 22:00 | NUR ---
PT REFUSED TO BE REPOSITIONED. NO C/O PAIN. NO SOB NOTED. SAFETY AND SEIZURES PRECAUTION IN PLACE.
[2017-12-11] MEDS: NACL 0.9% 1,000 ML IV SCH (22:41)
[2017-12-12] VITALS (7 sets, daily range): BP systolic 86–166; BP diastolic 56–98
--- NOTE | 2017-12-12 00:30 | NUR ---
DR. CURRY MADE AWARE OF PT'S HEART RATE 181 ON [employer]. MD WILL ORDER EKG.
--- NOTE | 2017-12-12 02:00 | NUR ---
PT REFUSED TO BE CHANGED, TURNED AND REPOSITIONED. REFUSED TO COLLECT SPECIMEN FOR CULTURE. PER PT, HE JUST WANT TO REST FOR NOW.
[2017-12-12] MEDS: HYDROmorphone PFS 2 MG/ML SYR IVP PRN ×6 (02:08→21:36)
[2017-12-12] MEDS ORDERED: LORazepam 2 MG/ML VIAL IM/IVP SCH (03:20)
--- NOTE | 2017-12-12 03:22 | NUR ---
PT'S HEART RATE VARIES FROM [address] SPANGLER MADE AWARE. PER , SHE WILL ORDER ATIVAN.
[2017-12-12] MEDS ORDERED: DILTIAZEM 25 MG/5 ML VIAL IVP ONE (03:45)
[2017-12-12] MEDS ORDERED: METOPROLOL 5 MG/5 ML VIAL IVP ONE (04:05)
--- NOTE | 2017-12-12 04:27 | NUR ---
PT'S HEART RATE STILL AT 160'S. ATIVAN CANCELLED BY DR. SPANGLER. V/S TAKEN. BP WNL. ORDERED LOPRESSOR 5 MG IVP.
--- NOTE | 2017-12-12 04:30 | NUR ---
PT REFUSED TO BE CHANGED AND REPOSITIONED. PER PT, IT HURTS WHEN REPOSITIONED. EXPLAINED TO PT THAT HE NEEDS TO BE TURNED AND REPOSITIONED AND WE WILL DO IT SLOWLY AND CAREFULLY. PT STILL REFUSED.
[2017-12-12] MEDS ORDERED: NACL 0.9% 250 ML IV ONE (05:00)
--- NOTE | 2017-12-12 05:15 | NUR ---
V/S TAKEN. BP 105/76. HR 94. DR. SPANGLER ORDERED NS BOLUS 250 ML.
--- NOTE | 2017-12-12 05:45 | NUR ---
V/S TAKEN. ANDRES 129/98, HR 74. DR. SPANGLER MADE AWARE.
[2017-12-12] MEDS: PIPER/TAZO 3.375GM/D5W PREMIX 50 ML IV SCH ×3 (05:46→20:48)
[2017-12-12] MEDS: NACL 0.9% 1,000 ML IV SCH (05:46)
[2017-12-12 06:29] LABS: ANION GAP 11.3 (8-16); CARBON DIOXIDE 28.2 mmol/L (21-32); CREATININE 0.4 mg/dL (0.7-1.3)
--- NOTE | 2017-12-12 06:30 | NUR ---
PT SLEEPING BUT AROUSABLE. NO S/S OF RESP DISTRESS.
[2017-12-12 06:31] LABS: MAGNESIUM 1.4 mg/dL (1.8-2.4); PHOSPHORUS 4.3 mg/dL (2.5-4.9)
[2017-12-12 06:55] LABS: POTASSIUM 2.5 mmol/L (3.5-5.1)
--- NOTE | 2017-12-12 06:55 | NUR ---
RECEIVED CRITICAL LAB RESULT POTASSIUM 2.5. REPORTED TO DR. LOPEZ. TO SEE PT.
--- NOTE | 2017-12-12 07:10 | NUR ---
RECEIVED REPORT FROM DIRECTOR PRIVATE RN. PT IN STABLE CONDITION. COMPLAINING OF 8/10 GENERALIZED PAIN. WILL ADMINISTER DILAUDID PER MD ORDERS. LUNGS CTA IN ALL REED. BILATERAL LE 2+ PITTING EDEMA NOTED. RIGHT IJ TRIPLE LUMEN IN PLACE RUNNING IVF PER MD ORDERS. CONTACT PRECAUTIONS FOR HX MRSA NARES. SACROCOCCYX/BUTTOCKS PRESSURE ULCER. POSTERIOR LEG PRESSURE ULCERS. DRY SCAB NOTED ON UPPER LIP. F/C IN PLACE. ALL SAFETY PRECAUTIONS IN PLACE, WILL CONTINUE TO MONITOR.
--- NOTE | 2017-12-12 07:30 | NUR ---
ENDORSED PT TO DAY SHIFT NURSE. PT IN STABLE CONDITION.
[2017-12-12] MEDS ORDERED: HEPARIN PER PHARMACY MC PRN (08:00)
[2017-12-12] MEDS: METHOCARBAMOL 500 MG TAB PO SCH ×4 (08:10→20:48)
[2017-12-12] MEDS: SIMETHICONE 80 MG TAB.CHEW PO SCH ×4 (08:10→20:48)
[2017-12-12] MEDS: ZINC SULF 220 MG CAP PO SCH (08:10)
[2017-12-12] MEDS: LACTOBACILLUS RHAMNOSUS GG 1 EACH CAP PO SCH (08:10)
[2017-12-12] MEDS: levETIRAcetam 500 MG TAB PO SCH ×2 (08:11→20:49)
[2017-12-12] MEDS: MULTIVITAMIN/MINERALS 1 TAB PO SCH (08:11)
[2017-12-12] MEDS: ASCORBIC ACID 500 MG TAB PO SCH (08:11)
[2017-12-12] MEDS: FERROUS SULFATE 325 MG TABEC PO SCH ×2 (08:11→20:48)
[2017-12-12] MEDS: Z-GUARD PASTE TP SCH ×2 (08:12→09:00)
[2017-12-12] MEDS: VANCOMYCIN 1GM/DEXT 5% PREMIX 200 ML IV SCH ×2 (08:29→21:35)
--- NOTE | 2017-12-12 08:29 | NUR ---
SCHEDULED ABX ADMINISTERED AT THIS TIME. WILL CONTINUE TO MONITOR. PT REPORTS PAIN 2/10 TOLERABLE AT THIS TIME.
[2017-12-12 08:55] LABS: WHITE BLOOD COUNT (AUTO) 20.9 K/uL (4.8-10.8)
[2017-12-12 08:56] LABS: HEMATOCRIT 32.8 % (36-52); MEAN CORPUSCULAR HEMOGLOBIN 29 pg (27-31); MEAN CORPUSCULAR HGB CONC 34 g/dL (33-37); MEAN CORPUSCULAR VOLUME 86.5 fL (80-94); PLATELET COUNT (AUTO) 321 K/uL (140-450); RED BLOOD CELL COUNT(AUTO) 3.79 MIL/uL (4.20-6.10); RED CELL DISTRIBUTION WIDTH 18.7 % (11.6-13.7)
[2017-12-12] MEDS ORDERED: POTASSIUM CHLORIDE 10 MEQ TABER PO SCH (09:00)
[2017-12-12 09:09] LABS: LYMPHOCYTES % (MANUAL) 16 % (20-46); MONOCYTES % (MANUAL) 3 % (5-12)
--- NOTE | 2017-12-12 09:32 | NUR ---
PT ALLOWS REPOSITIONING BUT REFUSED TO BE TURNED ENOUGH TO ACCESS WOUND. REFUSING HYDRAGUARD.
--- NOTE | 2017-12-12 09:58 | NUR ---
Green House Manager Note: Late entry for 12/11/17: Per Daysi from [facility] , she will come to hospital and talk to patient.
[2017-12-12] MEDS: KCL 20 MEQ/WATER INJ PREMIX 100 ML IV SCH ×2 (10:30→11:02)
--- NOTE | 2017-12-12 11:14 | NUR ---
PT ASKING FOR DILAUDID Q3 HOURS. FAMILY MEMBERS AT BEDSIDE INSIST THAT DILAUDID BE GIVEN WHENEVER AVAILABLE. EXPLAINED TO PT THAT MD DESIRES FOR PT TO CONVERT TO [facility] PO FOR PAIN CONTROL. PT VERBALIZES UNDERSTANDING BUT CONTINUES TO ASK FOR DILAUDID IVP.
--- NOTE | 2017-12-12 12:51 | NUR ---
SXN PT VIA YANKAUER. SMALL TO MODERATE AMOUNT OF THICK WHITE SXNS SUCTIONED. NO RESPIRATORY DISTRESS NOTED.
[2017-12-12] MEDS: THERAHONEY GEL 42.5 GM TP SCH ×2 (13:00→13:30)
--- NOTE | 2017-12-12 13:00 | NUR ---
PT REFUSES DRESSING CHANGE AND WOUND CARE. EXPLAINED RISKS AND BENEFITS TO PT. PT REQUESTS THAT WOUND CARE BE DELAYED TO LATER IN THE DAY.
--- NOTE | 2017-12-12 13:30 | NUR ---
SCHEDULED ABX ADMINISTERED AT THIS TIME.
--- NOTE | 2017-12-12 13:31 | NUR ---
HEPARIN BOLUS AND HEPARIN CONTINUOUS INFUSION STARTED AT THIS TIME. WILL MONITOR FOR ANY COMPLICATIONS OF THERAPY.
[2017-12-12] MEDS: hePARIN / DEXT 5% PREMIX 250 ML IV SCH ×2 (13:45→22:05)
[2017-12-12 14:18] LABS: ANION GAP 11.6 (8-16); CARBON DIOXIDE 28.1 mmol/L (21-32); CREATININE 0.5 mg/dL (0.7-1.3); POTASSIUM 4.7 mmol/L (3.5-5.1)
--- NOTE | 2017-12-12 14:28 | NUR ---
12/12/17 RD FOLLOW UP COMPLETED PLEASE REFER TO NUTRITION ASSESSMENT UNDER CARE ACTIVITY FOR ESTIMATED NUTRITIONAL NEEDS. 1. RECOMMEND REGULAR DIET TOLERATED. 2. RECOMMEND HEALTH SHAKES TID. 3. RD TO FOLLOW-UP 3-5 DAYS, MODERATE RISK. JOHN PEREZ, RD
[2017-12-12] MEDS: HYDROcodone/APAP 10/325 MG 1 TAB TAB PO PRN (14:42)
--- NOTE | 2017-12-12 14:50 | NUR ---
DILAUDID GIVEN FOR 8/10 PAIN. WILL ATTEMPT TO PERFORM WOUND CARE.
--- NOTE | 2017-12-12 15:12 | NUR ---
PT CONTINUES TO REFUSE WOUND CARE. DISCUSSED RISKS AND BENEFITS AND THE NEED FOR WOUND CARE WITH PT AND FAMILY MEMBERS AT BEDSIDE. PT CONTINUES TO REQUEST THAT WOUND CARE BE DONE AT LATER TIME.
--- NOTE | 2017-12-12 16:30 | NUR ---
OFFERED WOUND CARE TO PT AGAIN AT THIS TIME. PT AND FAMILY MEMBER CONTINUES TO REFUSE.
--- NOTE | 2017-12-12 18:06 | NUR ---
DILAUDID IVP GIVEN AT THIS TIME FOR 8/10 GENERALIZED PAIN. WILL CONTINUE TO MONITOR.
--- NOTE | 2017-12-12 19:10 | NUR ---
ENDORSED PLAN OF CARE TO BLIND LACER RN. PT IN STABLE CONDITION.
--- NOTE | 2017-12-12 19:14 | NUR ---
REPORT RECEIVED FROM AM NURSE AT BEDSIDE. PT IN STABLE CONDITION. AAOX3. INTRODUCED SELF TO PT AND FAMILY AND BOARD UPDATED. PT HAS A MODIFIED CODE THAT STATES BIPAP ONLY. BILATERAL PITTING EDEMA. AND LAMB IN PLACE. SKIN WARM, DRY, NOT INTACT DUE TO DECUBITUS ON THE SACRUM, BUTTOCKS LEFT AND RIGHT, AND POSTERIOR LEG. IV SITE PATENT AND INTACT. CENTRAL LINE PATENT AND INTACT. PT HAS STAT ORDER FOR CULTURE OF THE SACRUM. 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 BED LOCKED IN LOW POSITION. CALL PIZARRO WITHIN REACH.
--- NOTE | 2017-12-12 20:40 | NUR ---
PM MEDS GIVEN. ZOSYN ABX HUNG. VANCOMYCIN ALSO DUE. WILL HANG AFTER ZOSYN IS COMPLETE. PT TOLERATED WELL. COMPLAINTS OF PAIN, DILAUDID NOT DUE UNTIL 2105. WILL MEDICATE WHEN HANGING VANCOMYCIN.
[2017-12-12] MEDS: SENNA 8.6 MG TAB PO SCH (20:48)
[2017-12-12] MEDS: POLYETHYLENE GLYCOL 17 GM/PKT PO SCH (20:48)
[2017-12-12] MEDS: ATORVASTATIN 20 MG TAB PO SCH (20:49)
--- NOTE | 2017-12-12 21:00 | NUR ---
LAB IN TO COLLECT BLOOD FOR PTT DRAW.
[2017-12-12 21:31] LABS: BARBITURATE, URINE NEG. ng/ml (NEG <=200); BENZODIAZEPINE, URINE NEG. ng/mL (NEG <=200); CANNABINOID, URINE NEG. ng/mL (NEG <=50); COCAINE, URINE NEG. ng/mL (NEG <=300); OPIATE, URINE POS. ng/mL (NEG <=2000); PHENCYCLIDINE SCREEN,URINE NEG. ng/mL (NEG <=25)
--- NOTE | 2017-12-12 21:36 | NUR ---
VANCOMYCIN HUNG AT 2129. DILAUDID GIVEN AT 2135 FOR PAIN 11/26. PT TOLERATED WELL.
--- NOTE | 2017-12-12 22:05 | NUR ---
PTT LABS COMPLETE. PTT WAS 29.5. PROTOCOL SAYS TO GIVE 6800 UNIT BOLUS AND INCREASE DRIP BY 340 UNITS/HR. DRIP RATE WAS 12ML/HR, AFTER NEW PTT INCREASED TO 15.4ML/HR. SECOND NURSE CHECK BY KRISTA LANDA.
--- NOTE | 2017-12-12 22:30 | NUR ---
SACRAL WOUND CULTURE COLLECTED. PT HAD A SMALL FORMED BM. WOUND CARE AND DRESSING CHANGE ALSO DONE. MODERATE AMOUNT OF SEROUS DRAINAGE WITH NO ODOR. PT STATES THAT IT IS PAINFUL. MEDICATED WITH DILAUDID AT 2135.
--- NOTE | 2017-12-12 23:00 | NUR ---
VÍCTOR FROM LAB CALLED AND SAID THAT ONE CULTURE WAS MISSING. ORDER FOR SACRAL AND ORDER FOR DECUBITUS. VERIFIED WITH . WANTS TWO DIFFERENT SAMPLES.
--- NOTE | 2017-12-12 23:15 | NUR ---
DECUBITUS WOUND CULTURE RECEIVED AND SENT TO LAB.
[2017-12-13] VITALS: BP 126/75
[2017-12-13] MEDS: HYDROmorphone PFS 2 MG/ML SYR IVP PRN ×7 (01:09→21:14)
--- NOTE | 2017-12-13 01:09 | NUR ---
DILAUDID GIVEN FOR PAIN OF 7/10. PT TOLERATED WELL. WILL CONTINUE TO MONITOR.
[2017-12-13] MEDS: NACL 0.9% 1,000 ML IV SCH (03:00)
[2017-12-13 04:00] VITALS: BP 115/86
[2017-12-13] MEDS: PIPER/TAZO 3.375GM/D5W PREMIX 50 ML IV SCH ×4 (04:11→21:25)
--- NOTE | 2017-12-13 04:19 | NUR ---
TARA MENCHACA. DILAUDID GIVEN FOR PAIN 12/27. PT TOLERATED WELL. WILL CONTINUE TO MONITOR.
--- NOTE | 2017-12-13 05:20 | NUR ---
LAB CALLED TO REPORT PTT 150. WILL STOP CONTINUOUS DRIP FOR 1 HOUR THEN DECREASE BY 250 UNITS/HR WHEN STARTED AGAIN.
[2017-12-13] MEDS: hePARIN / DEXT 5% PREMIX 250 ML IV SCH ×2 (06:20→12:06)
--- NOTE | 2017-12-13 06:20 | NUR ---
HEPARIN DRIP STARTED AGAIN. DECREASED RATE TO 12.9ML/HR.
--- NOTE | 2017-12-13 07:20 | NUR ---
REPORT GIVEN TO AM NURSE. PT IN STABLE CONDITION.
--- NOTE | 2017-12-13 07:25 | NUR ---
RECEIVED REPORT FROM FISHER LINE RN. PT IN STABLE CONDITION. PT IS SLEEPING IN BED, AROUSABLE BY VOICE. DOES NOT VOCALIZED THE NEED FOR PAIN MEDICATION AT THIS TIME. F/C IN PLACE, DRAINING URINE. PATIENT HAS PRESSURE ULCERS ON POSTERIOR SACRAL COCCYX, BILATERAL POSTERIOR BUTTOCKERS, AND POSTERIOR LEG. DRESSINGS CHANGED DURING LAST (NIGHT) SHIFT. PT IS BEDBOUND DUE TO C3-C4 INJURY, QUADRIPLEGIA. FINE CRACKLES/DIMINISHED LUNG SOUNDS NOTED IN BILATERAL LUNGS. PT USES ORAL SUCTION WITH ASSIST. ON CONTACT PRECAUTION FOR HX MRSA NARES. RIGHT IJ TRIPLE LUMEN RUNNING IVF AND HEPARIN CONTINUOUS INFUSION AT THIS TIME. ALL SAFETY MEASURES IN PLACE, WILL CONTINUE TO MONITOR.
[2017-12-13 08:00] VITALS: BP 150/93
[2017-12-13 08:25] LABS: BASOPHILS # (AUTO) 0.3 K/uL (0.00-0.22); BASOPHILS % (AUTO) 1.2 % (0.0-2.0); EOSINOPHILS # (AUTO) 0.1 K/uL (0-0.4); EOSINOPHILS % (AUTO) 0.4 % (0.0-4.0); HEMATOCRIT 29.3 % (36-52); HEMOGLOBIN 9.7 g/dL (12.0-18.0); LYMPHOCYTES # (AUTO) 2.4 K/uL (2.0-11.5); LYMPHOCYTES % (AUTO) 10.1 % (20.5-51.1); MEAN CORPUSCULAR HEMOGLOBIN 28 pg (27-31); MEAN CORPUSCULAR HGB CONC 33 g/dL (33-37); MEAN CORPUSCULAR VOLUME 85.1 fL (80-94); MONOCYTES # (AUTO) 0.8 K/uL (0.8-1.0); MONOCYTES % (AUTO) 3.2 % (1.7-9.3); NEUTROPHILS # (AUTO) 20.5 K/uL (1.8-7.7); NEUTROPHILS % (AUTO) 85.1 % (42.2-75.2); PLATELET COUNT (AUTO) 280 K/uL (140-450); RED BLOOD CELL COUNT(AUTO) 3.45 MIL/uL (4.20-6.10); RED CELL DISTRIBUTION WIDTH 18.9 % (11.6-13.7)
[2017-12-13 08:31] LABS: CARBON DIOXIDE 26.3 mmol/L (21-32); CREATININE 0.5 mg/dL (0.7-1.3)
[2017-12-13 08:33] LABS: POTASSIUM 2.3 mmol/L (3.5-5.1)
[2017-12-13 08:35] LABS: MAGNESIUM 1.3 mg/dL (1.8-2.4); PHOSPHORUS 3.5 mg/dL (2.5-4.9)
--- NOTE | 2017-12-13 08:45 | NUR ---
PER CONOR FROM PHARMACY, VANCO WILL BE DISCONTINUED.
[2017-12-13] MEDS: POTASSIUM CHLORIDE 10 MEQ TABER PO SCH ×3 (09:00→21:26)
[2017-12-13] MEDS ORDERED: MAGNESIUM OXIDE 400 MG TAB PO SCH (09:00)
[2017-12-13] MEDS: Z-GUARD PASTE TP SCH (09:00)
[2017-12-13] MEDS: MAGNESIUM OXIDE 400 MG TAB PO SCH ×3 (09:00→21:26)
[2017-12-13] MEDS ORDERED: POTASSIUM CHLORIDE 10 MEQ TABER PO SCH ×2 (09:00→21:00)
[2017-12-13] MEDS: METHOCARBAMOL 500 MG TAB PO SCH ×5 (09:31→21:25)
[2017-12-13] MEDS: DILTIAZEM 60 MG TAB PO SCH ×4 (09:31→17:00)
[2017-12-13] MEDS: FERROUS SULFATE 325 MG TABEC PO SCH ×3 (09:32→21:25)
[2017-12-13] MEDS: ZINC SULF 220 MG CAP PO SCH (09:32)
[2017-12-13] MEDS: SIMETHICONE 80 MG TAB.CHEW PO SCH ×5 (09:32→21:26)
[2017-12-13] MEDS: levETIRAcetam 500 MG TAB PO SCH ×2 (09:32→21:25)
[2017-12-13] MEDS: MULTIVITAMIN/MINERALS 1 TAB PO SCH (09:32)
[2017-12-13] MEDS: LACTOBACILLUS RHAMNOSUS GG 1 EACH CAP PO SCH (09:32)
[2017-12-13] MEDS: ASCORBIC ACID 500 MG TAB PO SCH (09:33)
[2017-12-13] MEDS: KCL 20 MEQ/WATER INJ PREMIX 100 ML IV SCH ×2 (09:42→12:05)
--- NOTE | 2017-12-13 09:54 | NUR ---
PT REFUSED KDUR, MAG OX, AND Z-GUARD APPLICATION. STATES THAT HE WOULD LIKE TO SLEEP NOW. EXPLAINED THE RISKS OF LOW POTASSIUM AND MAGNESIUM LEVELS, ESPECIALLY RELATED TO CARDIAC FUNCTION, AND THE NEED FOR SKIN CARE/PROTECTION WITH Z-GUARD. PT STATES THAT HE "JUST NEEDS TO GET SOME REST NOW". WHEN ASKED IF HE WOULD CONSIDER TAKING THESE MEDICATIONS LATER, HE RESPONDED "YES". WILL OFFER MEDICATIONS TO PATIENT LATER TODAY.
--- NOTE | 2017-12-13 10:43 | NUR ---
REHAB NOTES SPOKE TO P[employer]PWOOD CONTRACTOR HARSHIL TO FOLLOW UP REGARDING PENDING ST ORDER, RN TO VERIFY WITH RESIDENT IF SWALLOW EVAL STILL NEEDED, IF NOT RN WILL ASK RESIDENT TO CANCEL IF NOT NECESSARY.
[2017-12-13 12:00] VITALS: BP 84/69
--- NOTE | 2017-12-13 12:06 | NUR ---
HUNG NEW BAG OF HEPARIN CONTINUOUS INFUSION AT SAME RATE OF 12.9 ML/HOUR. WILL MONITOR FOR ADVERSE EFFECTS OF HEPARIN THERAPY. AWAITING FOR NEXT APPT DRAW AND RESULTS.
[2017-12-13] MEDS: THERAHONEY GEL 42.5 GM TP SCH (13:00)
--- NOTE | 2017-12-13 13:28 | NUR ---
PATIENT REFUSING WOUND CARE/ASSESSMENT NOW DUE TO FATIGUE AND PAIN. WILL OFFER/ADMINISTER DILAUDID WHEN NEW DOSE AVAILABLE AND ATTEMPT WOUND CARE. FAMILY MEMBER AT BEDSIDE SAID SHE WILL BE THERE TO ENCOURAGE PT TO AGREE TO WOUND CARE.
--- NOTE | 2017-12-13 13:49 | NUR ---
PT REFUSING 1300 SCHEDULED MEDICATIONS. WHEN ASKED IF HE WILL TAKE THEM LATER, HE SAID "I WILL TAKE THEM LATER". WILL OFFER MEDICATIONS TO PT AT LATER TIME.
--- NOTE | 2017-12-13 14:08 | NUR ---
PER HEPARIN PROTOCOL, NO CHANGE IN RATE OF HEPARIN CONTINUOUS INFUSION FOR APPT 48.6.
[2017-12-13 14:12] LABS: MAGNESIUM 1.3 mg/dL (1.8-2.4); PHOSPHORUS 3.7 mg/dL (2.5-4.9)
[2017-12-13 16:00] VITALS: BP 140/90
--- NOTE | 2017-12-13 17:15 | NUR ---
PT REFUSING 1700 MEDS. WILL CONTINUE TO MONITOR.
--- NOTE | 2017-12-13 17:30 | NUR ---
WOUND CARE AND DRESSING CHANGED PERFORMED ACCORDING TO MD ORDERS. PT TOLERATED. Addendum: 12/13/17 at 1936 by Germania Whitten Meng, RN WOUND CARE PERFORMED LATE PER PT AND FAMILY MEMBER REQUEST.
--- NOTE | 2017-12-13 18:15 | NUR ---
HEPARIN CONTINUOUS INFUSION HELD DUE TO PETECHIAE NOTED ON ABDOMEN. WILL NOTIFY DR. CRUZ.
--- NOTE | 2017-12-13 18:30 | NUR ---
HEPARIN INFUSION HAS BEEN DISCONTINUED. DR. CRUZ AWARE OF PETECHIAE. WILL MONITOR FOR BLEEDING.
--- NOTE | 2017-12-13 18:40 | NUR ---
STOOL IMPACTION NOTED. DR. CRUZ AT BEDSIDE TO PERFORM STOOL DISIMPACTION. LARGE AMOUNT OF SOFT BUT FORMED STOOL REMOVED.
--- NOTE | 2017-12-13 19:10 | NUR ---
ENDORSED PLAN OF CARE TO HELPER STEEL FABRICATION RN. PT IN STABLE CONDITION.
--- NOTE | 2017-12-13 19:11 | NUR ---
REPORT RECEIVED FROM AM NURSE AT BEDSIDE. PT IN STABLE CONDITION. AAOX4. INTRODUCED SELF TO PT AND FAMILY. BOARD UPDATED. IV SITES PATENT AND INTACT. SKIN WARM, DRY, AND NOT INTACT DUE TO PRESSURE ULCERS AT THE SACRAL, RIGHT AND LEFT BUTTOCKS AND DOWN THE THIGH. PT STATES HE IS IN PAIN. WILL MEDICATE. LAMB DRAINING PROPERLY. PT SUCTIONED. HEPARIN DRIP DC DURING AM SHIFT. BED LOCKED IN LOW POSITION. CALL PIZARRO WITHIN REACH.
[2017-12-13 20:00] VITALS: BP 120/66
[2017-12-13 20:05] LABS: CARBON DIOXIDE 25.1 mmol/L (21-32); CREATININE 0.5 mg/dL (0.7-1.3); POTASSIUM 3.1 mmol/L (3.5-5.1)
[2017-12-13] MEDS: POLYETHYLENE GLYCOL 17 GM/PKT PO SCH (21:25)
--- NOTE | 2017-12-13 21:25 | NUR ---
PM MEDS GIVEN. ZOSYN HUNG. DILAUDID GIVEN. FERROUS SULFATE NOT GIVEN DUE TO PT SAYING IT CAUSES HIM TO HAVE AN UPSET STOMACH. JODIKOT DROPPED. PULLED ANOTHER DOSE FROM THE PYXIS. PT TOLERATED WELL.
[2017-12-13] MEDS: SENNA 8.6 MG TAB PO SCH (21:27)
[2017-12-13] MEDS: ATORVASTATIN 20 MG TAB PO SCH (21:27)
[2017-12-13] MEDS: APIXABAN 2.5 MG TAB PO SCH (21:28)
[2017-12-14] VITALS: BP 150/120
--- NOTE | 2017-12-14 | NUR ---
PT BLOOD PRESSURE WAS VERY HIGH AT 152/134. RECHECKED MULTIPLE TIMES ON THAT ARM AND IT WAS CONSISTENTLY HIGH. TRIED MOVING THE CUFF TO THE FOREARM AND IT CAME OUT TO 162/137. TRIED CHECKING THE RIGHT ARM AND IT WAS 156/128. DID A MANUAL CHECK AND GOT 150/120. NOTIFIED.
[2017-12-14] MEDS: HYDROmorphone PFS 2 MG/ML SYR IVP PRN ×4 (00:26→12:54)
--- NOTE | 2017-12-14 01:05 | NUR ---
NEW ORDER OF CARDIZEM 1 TIME ORDER AND Q8H. PT TOLERATED WELL.
[2017-12-14] MEDS ORDERED: DILTIAZEM 60 MG TAB PO SCH (01:30)
--- NOTE | 2017-12-14 01:35 | NUR ---
RECHECKED BP AND WAS 130/82. NOTIFIED.
--- NOTE | 2017-12-14 03:00 | NUR ---
PT AWAKE AND ALERT. ASKING FOR PAIN MEDICATION. PAIN 12/27.
[2017-12-14] MEDS: NACL 0.9% 1,000 ML IV SCH ×2 (03:47→15:01)
--- NOTE | 2017-12-14 03:48 | NUR ---
DILAUDID GIVEN FOR PAIN 12/27. PT TOLERATED WELL.
[2017-12-14 04:00] VITALS: BP 133/112
[2017-12-14] MEDS: DILTIAZEM 60 MG TAB PO SCH ×3 (04:02→21:00)
[2017-12-14] MEDS: PIPER/TAZO 3.375GM/D5W PREMIX 50 ML IV SCH ×3 (04:02→21:10)
--- NOTE | 2017-12-14 07:15 | NUR ---
REPORT GIVEN TO AM NURSE. PT IN STABLE CONDITION.
--- NOTE | 2017-12-14 07:16 | NUR ---
RECEIVED REPORT FROM PM NURSE AT THE BEDSIDE. INTRODUCED SELF AND UPDATED THE BOARD.PT AOX4. HELPED HIM WITH ADJUSTING HIS BLANKET. PT HAS RT IJ TRIPLE LUMEN CENTRAL LINE, 20 G ON BOTH HAND. PT IS QUADRIPLEGIC, ON CONTACT ISOLATION FOR MRSA IN NARES. PT MODIFIED CODE.PLACED CALL LIGHT WITHIN PT REACH. ALL THE SAFETY MEASURE IN PLACE. NO SIGN OF DISTRESS AT THIS TIME. WILL CONTINUE TO MONITOR PT.
[2017-12-14 07:43] VITALS: BP 99/73
[2017-12-14 08:40] LABS: BASOPHILS # (AUTO) 0.1 K/uL (0.00-0.22); BASOPHILS % (AUTO) 0.4 % (0.0-2.0); EOSINOPHILS # (AUTO) 0.2 K/uL (0-0.4); EOSINOPHILS % (AUTO) 0.9 % (0.0-4.0); HEMATOCRIT 24.7 % (36-52); HEMOGLOBIN 8.3 g/dL (12.0-18.0); LYMPHOCYTES # (AUTO) 1.9 K/uL (2.0-11.5); LYMPHOCYTES % (AUTO) 11.1 % (20.5-51.1); MEAN CORPUSCULAR HEMOGLOBIN 28 pg (27-31); MEAN CORPUSCULAR HGB CONC 33 g/dL (33-37); MEAN CORPUSCULAR VOLUME 85.1 fL (80-94); MONOCYTES # (AUTO) 0.6 K/uL (0.8-1.0); MONOCYTES % (AUTO) 3.6 % (1.7-9.3); NEUTROPHILS # (AUTO) 14.6 K/uL (1.8-7.7); PLATELET COUNT (AUTO) 263 K/uL (140-450); RED BLOOD CELL COUNT(AUTO) 2.91 MIL/uL (4.20-6.10); RED CELL DISTRIBUTION WIDTH 18.5 % (11.6-13.7); WHITE BLOOD COUNT (AUTO) 17.4 K/uL (4.8-10.8)
[2017-12-14 09:00] LABS: CARBON DIOXIDE 24.4 mmol/L (21-32); CREATININE 0.4 mg/dL (0.7-1.3)
[2017-12-14 09:01] LABS: MAGNESIUM 1.4 mg/dL (1.8-2.4); PHOSPHORUS 3.1 mg/dL (2.5-4.9)
[2017-12-14] MEDS: PARoxetine 20 MG TAB PO SCH (09:38)
[2017-12-14] MEDS: LACTOBACILLUS RHAMNOSUS GG 1 EACH CAP PO SCH (09:38)
[2017-12-14] MEDS: ASCORBIC ACID 500 MG TAB PO SCH (09:39)
[2017-12-14] MEDS: MULTIVITAMIN/MINERALS 1 TAB PO SCH (09:39)
[2017-12-14] MEDS: FERROUS SULFATE 325 MG TABEC PO SCH ×2 (09:39→21:19)
[2017-12-14] MEDS: ZINC SULF 220 MG CAP PO SCH (09:39)
[2017-12-14] MEDS: FAMOTIDINE 20 MG TAB PO SCH (09:41)
[2017-12-14] MEDS: SIMETHICONE 80 MG TAB.CHEW PO SCH ×4 (09:41→21:21)
[2017-12-14 09:42] LABS: ANION GAP 12.4 (8-16); POTASSIUM 2.8 mmol/L (3.5-5.1)
[2017-12-14] MEDS: POTASSIUM CHLORIDE 10 MEQ TABER PO SCH ×2 (09:42→21:20)
--- NOTE | 2017-12-14 09:45 | NUR ---
ADMINISTERED MEDS TO PT ORDERED. PT TOLERATED WELL. HELPED PT TO SUCTIONED. FAMILY AT THE BEDSIDE. PT STAES TO HAVE PAIN AT TOLERABLE LEVEL ADMINISTERED DILAUDID IN MORNING. WILL CONTINUE TO MONITOR PT.
[2017-12-14] MEDS: APIXABAN 2.5 MG TAB PO SCH ×2 (09:50→21:47)
[2017-12-14] MEDS: MAGNESIUM OXIDE 400 MG TAB PO SCH ×2 (10:00→21:20)
[2017-12-14] MEDS: levETIRAcetam 500 MG TAB PO SCH ×2 (10:01→21:21)
[2017-12-14] MEDS: METHOCARBAMOL 500 MG TAB PO SCH ×4 (10:21→23:00)
--- NOTE | 2017-12-14 11:30 | NUR ---
CHECKED ON PT. PT LYING ON HIS BED. FAMILY AT BEDSIDE. NO SIGN OF DISTRESS.VS STABLE, BS WITHIN NORMAL RANGE, NO INSULIN COVERAGE REQUIRED. WILL CONTINUE TO MONITOR PT.
[2017-12-14 12:00] VITALS: BP 104/68
[2017-12-14] MEDS ORDERED: KCL 20 MEQ/WATER INJ PREMIX 200 ML IV ONE (12:50)
[2017-12-14] MEDS ORDERED: MAG SULF 2000 MG/WATER PREMIX 100 ML IV ONE (12:55)
[2017-12-14] MEDS: THERAHONEY GEL 42.5 GM TP SCH (13:00)
[2017-12-14] MEDS: Z-GUARD PASTE TP SCH (13:00)
--- NOTE | 2017-12-14 13:04 | NUR ---
ADMINISTERED MEDS TO PT ORDERED. PT COMPLAINING OF PAIN. ADMINISTERED DILAUDID ORDERED. FAMILY AT THE BEDSIDE. PT TOLERATED MEDS WELL. WILL CONTINUE TO MONITOR PT.
--- NOTE | 2017-12-14 13:30 | NUR ---
CHANGED THE DRESSING OF THE PT. MILD DRAINAGE, SEROSANGUINEOUS DRAINAGE NOTED. MEDICATED PT WITH DILAUDID BEFORE DRESSING WAS CHANGED. DRESSING CHANGED ORDER. NO FOUL ODOR OF THE WOUND PRESENT. PT TOLERATED WELL. CHRISTINE, STUDENT NURSE PRESENT AT BEDSIDE, HELPED WITH DRESSING CHANGE. PT REPOSITIONED. PT RESSIST FOR CHANGING HIS POSITION. ALL SAFETY MEASURE IN PLACE. WILL CONTINUE TO MONITOR PT.
[2017-12-14 16:00] VITALS: BP 112/80
--- NOTE | 2017-12-14 17:30 | NUR ---
ADMINISTERED MEDS ORDERED TO PT. PT TOLERATED MEDS WELL. WILL CONTINUE MONITORING PT.
--- NOTE | 2017-12-14 18:03 | NUR ---
ADMINISTERED MEDS ORDERED TO PT. PT TOLERATED WELL. FAMILY AT THE BEDSIDE. NO SIGN OF DISTRESSED. HELPED TO SUCTION PT. ALL SAFETY MEASURE IN PLACE. WILL CONTINUE TO MONITOR PT.
[2017-12-14] MEDS: HYDROmorphone 2 MG TAB PO PRN ×2 (18:36→21:49)
--- NOTE | 2017-12-14 18:43 | NUR ---
CHECKED ON PT. ADMINISTERED PAIN MEDS . COMPLAINING OF PAIN. HELPED WITH SUCTION. FAMILY AT BEDSIDE. ALL SAFETY MEASURE IN PLACE. WILL CONTINUE TO MONITOR PT.
--- NOTE | 2017-12-14 19:20 | NUR ---
ENDORSED PT TO PM NURSE. PT IN STABLE CONDITION.
--- NOTE | 2017-12-14 19:21 | NUR ---
RECEIVED REPORT FROM DAY SHIFT RN FOR CONTINUITY OF CARE. PT IS A/OX4, ON ROOM AIR. PT IS ABLE TO MAKE NEEDS KNOWN. RESPIRATIONS EVEN AND UNLABORED AT THE MOMENT. PT HAS MULTIPLE WOUNDS, SEE WOUND ASSESSMENT. PT HAS LAMB CATHETER IN PLACE. PT HAS A RIGHT IJ TRIPLE LUMEN CATHETER, ASYMPTOMATIC, INTACT AND PATENT. DISCUSSED PLAN OF CARE WITH PT, PT VERBALIZED UNDERSTANDING. VITAL SIGNS WITHIN NORMAL LIMITS. PT STABLE, NO SIGNS OF DISTRESS NOTED AT THIS TIME. BED IN LOWEST POSITION, BED ALARM ON. CALL LIGHT WITHIN REACH, WILL CONTINUE TO MONITOR.
[2017-12-14 20:00] VITALS: BP 101/62
[2017-12-14] MEDS ORDERED: GABAPENTIN 300 MG CAP PO SCH (20:30)
[2017-12-14] MEDS ORDERED: MORPHINE SULFATE 2 MG/ML SYR IVP SCH (20:30)
--- NOTE | 2017-12-14 21:00 | NUR ---
PT REFUSING TO TURN. EXPLAINED TO PT WE NEED TO TURN HIM TO PREVENT MORE SKIN BREAKDOWN, PT GOT ANGRY AND SAID TO LEAVE HIM ALONE AND THAT HE DOESN'T WANT TO TURN.
[2017-12-14] MEDS: POLYETHYLENE GLYCOL 17 GM/PKT PO SCH (21:11)
[2017-12-14] MEDS: SENNA 8.6 MG TAB PO SCH (21:21)
[2017-12-14] MEDS: ATORVASTATIN 20 MG TAB PO SCH (21:21)
--- NOTE | 2017-12-14 21:49 | NUR ---
ADMINISTERED SCHEDULED MEDICATIONS AND DILAUDID FOR PAIN, PT TOLERATED WELL. PT REFUSED MORPHINE AFTER HAVING WASTED 1MG WHEN TAKEN OUT OF PYXIS, SO LEFT OVER 1MG WAS WASTED WELL. PT REQUESTED PO DILAUDID INSTEAD. HELD CARDIZEM DUE TO DECREASED BLOOD PRESSURE.
--- NOTE | 2017-12-14 23:05 | NUR ---
DIRECTOR OF INCOME TAX TRIED TO TURN PT AGAIN AND PT REFUSED AGAIN. TRIED TO TALK TO PT AGAIN ABOUT TURNING TO PREVENT MORE SKIN BREAKDOWN AND TO HELP WITH CURRENT WOUNDS, PT SAID "DON'T TOUCH ME I DON'T WANT TO MOVE."
--- NOTE | 2017-12-14 23:22 | NUR ---
DID NOT ADMINISTER ROBAXIN BECAUSE MEDICATION IS NOT AVAILABLE. CALLED STORES CLERK TO TRY TO GET MEDICATION FROM HIM BUT HE COULD NOT GET A HOLD OF MEDICATION.
[2017-12-15] VITALS: BP 106/64
--- NOTE | 2017-12-15 | NUR ---
VITAL SIGNS WITHIN NORMAL LIMITS. PT STABLE, NO SIGNS OF DISTRESS NOTED AT THIS TIME. BED IN LOWEST POSITION, BED ALARM ON. CALL LIGHT WITHIN REACH, WILL CONTINUE TO MONITOR.
--- NOTE | 2017-12-15 01:30 | NUR ---
NEUROLOGY PROFESSOR TRIED TO TURN PT AGAIN AND PT REFUSED AGAIN. TRIED TO TALK TO PT AGAIN ABOUT TURNING TO PREVENT MORE SKIN BREAKDOWN AND TO HELP WITH CURRENT WOUNDS, PT SAID "I UNDERSTAND, I DO, BUT I DON'T WANT TO MOVE NOW JUST PLEASE, PLEASE LEAVE ME ALONE, PLEASE, PLEASE, PLEASE."
--- NOTE | 2017-12-15 03:15 | NUR ---
SPOKE TO PT ABOUT HAVING TO TURN HIM AND PT REFUSED AGAIN. TOLD HIM IT WOULD HELP TO PREVENT MORE SKIN BREAKDOWN AND TO HELP WITH CURRENT WOUNDS, PT VERBALIZED UNDERSTANDING BUT STILL REFUSED TO LET US TURN HIM.
[2017-12-15 04:00] VITALS: BP 89/53
--- NOTE | 2017-12-15 04:00 | NUR ---
BP DECREASED, MAP ABOVE 60, OTHER VITAL SIGNS WITHIN NORMAL LIMITS. PT STABLE, NO SIGNS OF DISTRESS NOTED AT THIS TIME. BED IN LOWEST POSITION, BED ALARM ON. CALL LIGHT WITHIN REACH, WILL CONTINUE TO MONITOR.
[2017-12-15] MEDS: DILTIAZEM 60 MG TAB PO SCH ×3 (05:00→20:41)
[2017-12-15] MEDS: PIPER/TAZO 3.375GM/D5W PREMIX 50 ML IV SCH ×3 (05:12→20:41)
--- NOTE | 2017-12-15 05:12 | NUR ---
HELD CARDIZEM AGAIN DUE TO BLOOD PRESSURE BEING DECREASED.
--- NOTE | 2017-12-15 05:35 | NUR ---
TRIED TO TURN PT AGAIN WITH HELP FROM APPLIANCE PAINTER AND REFINISHER, PT REFUSED. PT VERBALIZED UNDERSTANDING ABOUT WOUNDS/TURNING, BUT ASKED TO PLEASE LET HIM REST BECAUSE HE IS IN A COMFORTABLE POSITION AND DOES NOT WANT TO BE TURNED."
[2017-12-15 07:27] LABS: BASOPHILS # (AUTO) 0.1 K/uL (0.00-0.22); BASOPHILS % (AUTO) 0.6 % (0.0-2.0); EOSINOPHILS # (AUTO) 0.2 K/uL (0-0.4); HEMATOCRIT 22.9 % (36-52); HEMOGLOBIN 7.6 g/dL (12.0-18.0); LYMPHOCYTES # (AUTO) 2.1 K/uL (2.0-11.5); LYMPHOCYTES % (AUTO) 17.3 % (20.5-51.1); MEAN CORPUSCULAR HEMOGLOBIN 29 pg (27-31); MEAN CORPUSCULAR HGB CONC 33 g/dL (33-37); MEAN CORPUSCULAR VOLUME 86.7 fL (80-94); MONOCYTES # (AUTO) 0.7 K/uL (0.8-1.0); MONOCYTES % (AUTO) 5.5 % (1.7-9.3); NEUTROPHILS % (AUTO) 74.6 % (42.2-75.2); PLATELET COUNT (AUTO) 244 K/uL (140-450); RED BLOOD CELL COUNT(AUTO) 2.64 MIL/uL (4.20-6.10); RED CELL DISTRIBUTION WIDTH 18.9 % (11.6-13.7); WHITE BLOOD COUNT (AUTO) 12.1 K/uL (4.8-10.8)
--- NOTE | 2017-12-15 07:34 | NUR ---
ENDORSED PT TO DAY SHIFT RN FOR CONTINUITY OF CARE. PT IN STABLE CONDITION.
[2017-12-15 07:37] LABS: MAGNESIUM 2.4 mg/dL (1.8-2.4)
[2017-12-15 07:46] LABS: ANION GAP 13.1 (8-16); CARBON DIOXIDE 24.8 mmol/L (21-32); CREATININE 0.4 mg/dL (0.7-1.3); POTASSIUM 3.9 mmol/L (3.5-5.1)
[2017-12-15 08:00] VITALS: BP 93/54
[2017-12-15] MEDS: Z-GUARD PASTE TP SCH (09:00)
[2017-12-15] MEDS: MULTIVITAMIN/MINERALS 1 TAB PO SCH (09:00)
--- NOTE | 2017-12-15 09:00 | NUR ---
TRIED REPOSITIONING PT. PLASTIC SURGERY NURSE AT BEDSIDE. PT REFUSED TO BE REPOSITIONED. WILL TRY TO REPOSITION HIM AGAIN. WILL CONTINUE TO MONITOR PT.
[2017-12-15] MEDS: HYDROmorphone 2 MG TAB PO PRN ×4 (09:48→21:02)
[2017-12-15] MEDS: ZINC SULF 220 MG CAP PO SCH (09:49)
[2017-12-15] MEDS: ASCORBIC ACID 500 MG TAB PO SCH (09:49)
[2017-12-15] MEDS: MAGNESIUM OXIDE 400 MG TAB PO SCH ×2 (09:50→20:49)
[2017-12-15] MEDS: FERROUS SULFATE 325 MG TABEC PO SCH ×2 (09:50→20:46)
[2017-12-15] MEDS: POTASSIUM CHLORIDE 10 MEQ TABER PO SCH ×2 (09:50→20:47)
[2017-12-15] MEDS: levETIRAcetam 500 MG TAB PO SCH ×2 (09:50→20:47)
--- NOTE | 2017-12-15 09:50 | NUR ---
CALLED PHARMACY REGARDING ROBAXIN . NOT IN BOTH BOTH PIXES. STATES WILL LOAD THE DRUG. WILL ADMINISTER ONCE IT IS AVAILABLE.
[2017-12-15] MEDS: PARoxetine 20 MG TAB PO SCH (09:51)
[2017-12-15] MEDS: LACTOBACILLUS RHAMNOSUS GG 1 EACH CAP PO SCH (09:51)
[2017-12-15] MEDS: FAMOTIDINE 20 MG TAB PO SCH (09:51)
[2017-12-15] MEDS: SIMETHICONE 80 MG TAB.CHEW PO SCH ×4 (09:51→20:49)
[2017-12-15] MEDS: APIXABAN 2.5 MG TAB PO SCH ×2 (09:53→21:03)
--- NOTE | 2017-12-15 10:29 | NUR ---
CHECKED ON PT. PT HELPED WITH FEEDING BY IRRIGATION EQUIPMENT INSTALLER. PT REFUSED TO BE TURNED AGAIN. EXPLAINED THE PROS OF TURING SIDE BY SIDE BY SIDE AND CONS OF NOT . STATES HE UNDERSTANDS IT BUT HE REFUSES. ASKED IF WANT T6O TALK TO FAMILY MEMBER, STATES THAT HE WILL TALK ONCE HIS WILL COME TO VISIT HIM. DO NOT WANT TO BOTHER FAMILY. NO SIGN OF DISTRESS. ALL MEDS ADMINISTERED ORDER. PT TOLERATED WELL. WILL CONTINUE TO MONITOR PT.
[2017-12-15] MEDS: METHOCARBAMOL 500 MG TAB PO SCH ×2 (10:56→12:36)
[2017-12-15 12:00] VITALS: BP 93/64
[2017-12-15] MEDS: NACL 0.9% 1,000 ML IV SCH (12:36)
[2017-12-15] MEDS: THERAHONEY GEL 42.5 GM TP SCH (13:00)
--- NOTE | 2017-12-15 13:02 | NUR ---
ADMINISTERED MEDS TO PT ORDERED. PT FAMILY AT THE BEDSIDE. FAMILY MEMBER STATED THAT PT ATE 100 % OF FOOD BROUGHT FROM THE HOME. PT IN GOOD MOOD , COOPERATIVE. HAPPILY TALKING WITH FAMILY MEMBERS. NO SIGN OF DISTRESS. HELD THE CARDIZEM BECAUSE OF BP 93/64. WILL CONTINUE MONITORING THE PT.
[2017-12-15 16:00] VITALS: BP 84/53
--- NOTE | 2017-12-15 16:15 | NUR ---
VS RECORDED ON PT. RUNNING ,LOW. DR TRAN NOTIFIED. WILL REASSESS PT TO MONITOR HIS BP. PHARMACY CALLED [facility] NOTIFIED ABOUT PHARMACY ASKING TO ORDER FOR ALTERNATE MEDS FOR IT. BS 117 NOTED. PT WITH THE FAMILY. PUT PT ON SITTING POSITION, ELEVATED HIS LEG. RT LEG IS MORE EDEMATOUS THAN LFT ONE. DOCTOR AWARE. WILL CONTINUE TO MONITOR PT.
--- NOTE | 2017-12-15 18:00 | NUR ---
ADMINISTERED MEDS TO PT ORDERED. CHECKED BP 117/72. LASIX ORDERED BY DOCTOR. INFORMED THAT JUST TOOK THE DILAUDID. WILL ENDORSE INFORMATION TO PM NURSE. OKAY WITH THAT. INFORMED THAT IVF INFUSING RATE IS 100ML/HR BP KEEPS DROPPING . OKAY TO INFUSE WITH 100 ML/HR. WILL CONTINUE TO MONITOR PT.
--- NOTE | 2017-12-15 19:25 | NUR ---
ENDORSED PT TO PM NURSE. PT IN STABLE CONDITION.
--- NOTE | 2017-12-15 19:26 | NUR ---
RECEIVED REPORT FROM DAY SHIFT RN FOR CONTINUITY OF CARE. PT IS A/OX4, ON ROOM AIR. PT IS ABLE TO MAKE NEEDS KNOWN. RESPIRATIONS EVEN AND UNLABORED AT THE MOMENT. PT HAS MULTIPLE WOUNDS, SEE WOUND ASSESSMENT. PT HAS LAMB CATHETER IN PLACE. PT HAS A RIGHT IJ TRIPLE LUMEN CATHETER, ASYMPTOMATIC, INTACT AND PATENT. DISCUSSED PLAN OF CARE WITH PT, PT VERBALIZED UNDERSTANDING. PT BLOOD PRESSURE IS LOW, DR CURRY IS AWARE AND SHE GAVE ORDERS TO JUST MONITOR B/P, OTHER VITAL SIGNS WITHIN NORMAL LIMITS. PT STABLE, NO SIGNS OF DISTRESS NOTED AT THIS TIME. BED IN LOWEST POSITION, BED ALARM ON. CALL LIGHT WITHIN REACH, WILL CONTINUE TO MONITOR.
[2017-12-15] MEDS: FUROSEMIDE 40 MG/4 ML VIAL IVP SCH (19:45)
[2017-12-15 20:00] VITALS: BP 83/41
[2017-12-15] MEDS: POLYETHYLENE GLYCOL 17 GM/PKT PO SCH (20:41)
[2017-12-15] MEDS: SENNA 8.6 MG TAB PO SCH (20:48)
[2017-12-15] MEDS: ATORVASTATIN 20 MG TAB PO SCH (20:49)
--- NOTE | 2017-12-15 21:03 | NUR ---
ADMINISTERED SCHEDULED MEDICATIONS AND DILAUDID FOR PAIN, PT TOLERATED WELL. BP IS MORE STABLE NOW AT 110/64 WITH MAP OF 79.
--- NOTE | 2017-12-15 21:10 | NUR ---
TRIED TO TURN PT BUT PT REFUSED. EDUCATED PT IN IMPORTANCE OF TURNING Q2H FOR IMPROVEMENT/PREVENTION OF WOUNDS, PT VERBALIZED UNDERSTANDING, BUT ASKED TO PLEASE LET HIM REST BECAUSE HE IS IN A COMFORTABLE POSITION AND DOES NOT WANT TO BE TURNED."
--- NOTE | 2017-12-15 23:34 | NUR ---
TRIED TO TURN PT AGAIN BUT PT REFUSED. EDUCATED PT IN IMPORTANCE OF TURNING Q2H FOR IMPROVEMENT/PREVENTION OF WOUNDS AGAIN, PT VERBALIZED UNDERSTANDING, BUT REFUSED AGAIN.
[2017-12-16] VITALS: BP 92/59
--- NOTE | 2017-12-16 01:20 | NUR ---
TRIED TO CLEAN PT WOUNDS AND REPOSITION HIM, PT REFUSED. PT STATES HE IS "GOOD" RIGHT NOW. EDUCATED PT IN IMPORTANCE OF WOUND CARE AND TURNING Q2H FOR IMPROVEMENT/PREVENTION OF WOUNDS AGAIN, PT VERBALIZED UNDERSTANDING, BUT REFUSED.
--- NOTE | 2017-12-16 03:18 | NUR ---
TRIED TO TURN PT AGAIN BUT PT REFUSED. EDUCATED PT IN IMPORTANCE OF TURNING Q2H FOR IMPROVEMENT/PREVENTION OF WOUNDS AGAIN, PT VERBALIZED UNDERSTANDING, BUT REFUSED AGAIN.
[2017-12-16] MEDS: HYDROmorphone 2 MG TAB PO PRN (03:45)
--- NOTE | 2017-12-16 03:46 | NUR ---
BP CURRENTLY 95/57 WITH MAP 67. SPOKE WITH DR ALBARRAN ABOUT PT BEING IN PAIN BUT B/P HAS BEEN ON THE LOW SIDE ALL NIGHT AND DR ALBARRAN SAID IT WAS OK TO ONLY GIVE 2MG OF DILAUDID PO. TOOK OUT TWO DILAUDID PILLS FROM [employer] INSTRUCTED TO DO SO AND THEN RETURNED ONE PILL WITH SYEDA BLANCA WITNESS. ADMINISTERED MEDICATION, PT TOLERATED WELL.
[2017-12-16 04:00] VITALS: BP 94/56
[2017-12-16] MEDS: DILTIAZEM 60 MG TAB PO SCH ×3 (05:00→20:43)
[2017-12-16] MEDS: PIPER/TAZO 3.375GM/D5W PREMIX 50 ML IV SCH ×3 (05:06→20:34)
[2017-12-16] MEDS: NACL 0.9% 1,000 ML IV SCH ×2 (06:25→22:24)
[2017-12-16 06:36] LABS: BASOPHILS % (AUTO) 0.2 % (0.0-2.0); EOSINOPHILS # (AUTO) 0.2 K/uL (0-0.4); EOSINOPHILS % (AUTO) 2.4 % (0.0-4.0); HEMATOCRIT 22.8 % (36-52); HEMOGLOBIN 7.5 g/dL (12.0-18.0); LYMPHOCYTES # (AUTO) 1.9 K/uL (2.0-11.5); MEAN CORPUSCULAR HEMOGLOBIN 29 pg (27-31); MEAN CORPUSCULAR HGB CONC 33 g/dL (33-37); MEAN CORPUSCULAR VOLUME 87.6 fL (80-94); MONOCYTES # (AUTO) 0.5 K/uL (0.8-1.0); MONOCYTES % (AUTO) 6.2 % (1.7-9.3); NEUTROPHILS # (AUTO) 5.9 K/uL (1.8-7.7); NEUTROPHILS % (AUTO) 69.2 % (42.2-75.2); PLATELET COUNT (AUTO) 234 K/uL (140-450); RED CELL DISTRIBUTION WIDTH 18.9 % (11.6-13.7); WHITE BLOOD COUNT (AUTO) 8.6 K/uL (4.8-10.8)
[2017-12-16 07:02] LABS: MAGNESIUM 1.7 mg/dL (1.8-2.4); PHOSPHORUS 2.1 mg/dL (2.5-4.9)
[2017-12-16] MEDS ORDERED: HYDROmorphone 2 MG TAB PO PRN (07:15)
--- NOTE | 2017-12-16 07:15 | NUR ---
RECEIVE PATIENT REPORT AT BEDSIDE. PATIENT ASLEEP BUT AROUSABLE. NO S/S OF DISTRESS NOTED. PATIENT ON ROOM AIR. LAMB CATHETER IN PLACE, DRAINING YELLOW ORANGE URINE. RIGHT IJ CENTRAL LINE PLACE ASYMPTOMATIC, INTACT AND PATENT. PATIENT ON TELE MONITORING. BED LOWERED WITH CALL LIGHT WITHIN REACH. WILL CONTINUE TO MONITOR
--- NOTE | 2017-12-16 07:16 | NUR ---
ENDORSED PT TO DAY SHIFT RN FOR CONTINUITY OF CARE. PT IN STABLE CONDITION.
[2017-12-16 07:52] LABS: ANION GAP 11.7 (8-16); CARBON DIOXIDE 26.1 mmol/L (21-32); CREATININE 0.6 mg/dL (0.7-1.3); POTASSIUM 3.8 mmol/L (3.5-5.1)
[2017-12-16 07:53] VITALS: BP 114/76
[2017-12-16] MEDS: POTASSIUM CHLORIDE 10 MEQ TABER PO SCH ×2 (08:23→20:37)
[2017-12-16] MEDS: MULTIVITAMIN/MINERALS 1 TAB PO SCH (08:23)
[2017-12-16] MEDS: levETIRAcetam 500 MG TAB PO SCH ×2 (08:23→20:37)
[2017-12-16] MEDS: PARoxetine 20 MG TAB PO SCH (08:23)
[2017-12-16] MEDS: ZINC SULF 220 MG CAP PO SCH (08:23)
[2017-12-16] MEDS: SIMETHICONE 80 MG TAB.CHEW PO SCH ×4 (08:24→20:37)
[2017-12-16] MEDS: FERROUS SULFATE 325 MG TABEC PO SCH ×2 (08:24→20:37)
[2017-12-16] MEDS: LACTOBACILLUS RHAMNOSUS GG 1 EACH CAP PO SCH (08:24)
[2017-12-16] MEDS: FAMOTIDINE 20 MG TAB PO SCH (08:24)
[2017-12-16] MEDS: ASCORBIC ACID 500 MG TAB PO SCH (08:24)
[2017-12-16] MEDS: MAGNESIUM OXIDE 400 MG TAB PO SCH ×2 (08:24→20:37)
[2017-12-16] MEDS: CYCLOBENZAPRINE 10 MG TAB PO SCH ×3 (08:24→16:37)
[2017-12-16] MEDS: APIXABAN 2.5 MG TAB PO SCH ×2 (08:26→20:43)
[2017-12-16] MEDS: FUROSEMIDE 40 MG/4 ML VIAL IVP SCH (08:27)
[2017-12-16] MEDS: CALCIUM CARB/VIT-D 500 MG/200 IU 1 TAB PO SCH (08:38)
[2017-12-16] MEDS: HYDROcodone/APAP 10/325 MG 1 TAB TAB PO PRN ×3 (08:38→22:40)
[2017-12-16] MEDS ORDERED: MAG SULF 2000 MG/WATER PREMIX 50 ML IV SCH (09:00)
[2017-12-16] MEDS: Z-GUARD PASTE TP SCH (09:00)
[2017-12-16] MEDS ORDERED: FUROSEMIDE 40 MG/4 ML VIAL IVP SCH (09:00)
[2017-12-16] MEDS ORDERED: SODIUM PHOS / POTASSIUM PHOS 1 PKT PDR PO SCH (09:00)
--- NOTE | 2017-12-16 10:18 | NUR ---
REHAB NOTES MD RESIDENT CANCELLED ST SWALLOW EVAL ORDER.
--- NOTE | 2017-12-16 11:30 | NUR ---
MADE DR CRUZ AWARE OF SACRAL WOUND CULTURE RESULTS
[2017-12-16 12:00] VITALS: BP 105/72
[2017-12-16] MEDS: MORPHINE TAB ER 15 MG TABER PO SCH ×2 (12:18→20:36)
--- NOTE | 2017-12-16 12:30 | NUR ---
PATIENT REFUSES TO EAT LUNCH AT THIS TIME. PATIENT WANTED TO SLEEP. WILL CONTINUE TO MONITOR
[2017-12-16] MEDS: THERAHONEY GEL 42.5 GM TP SCH (13:00)
--- NOTE | 2017-12-16 14:50 | NUR ---
WOUND DRESSING CHANGE DONE WITH WOUND CARE NURSE. PATIENT HAD LOOSE BM. PATIENT CLEANED AND REPOSITIONED FOR COMFORT
--- NOTE | 2017-12-16 14:50 | NUR ---
PT. IS AAX4, VERBALIZES NEEDS. PT. REFUSED TO BE CLEANED, TURN, REPOSITION, AND WOUND CARE. REINFORCE TEACHING OF RISKS AND BENEFITS OF CARES AND WOUND TREATMENT. PT. FINALLY AGREE TO CARE AFTER 15 MINUTES OF EXPLAINING AND ENCOURAGEMENT. 4 STAFF ASSISTING IN CLEANING, INCONTINENT OF LARGE BM DURING CARES WHILE TURNING AND REPOSITION, WOUND CARE TREATMENT CHANGED WITH PRIMARY RN, MULTIPLE WOUNDS RESPONDING TO WOUND TX WELL, WOUND BEDS ARE CLEAN. NO ODOR. MOISTURE CONTROL STILL A CHALLENGE DUE TO PERINEUM TUNNELING WOUND AND DENUDED SKIN CONDITION. RECTAL BAG NOT RECOMMEND AT THIS TIME. WILL CONTINUE TO KEEP SKIN DRY AND CLEAN POSSIBLE AND CHANGE DRESSING PRN WHEN SOILING.
[2017-12-16 16:00] VITALS: BP 98/66
[2017-12-16] MEDS: ALBUTEROL SULFATE/IPRATROPIU 3 ML SOL IH PRN (17:45)
--- NOTE | 2017-12-16 17:45 | NUR ---
PATIENT AWAKE IN BED NO S/S OF DISTRESS NOTED. PATIENT'S SISTER PRESENT AT BEDSIDE.
--- NOTE | 2017-12-16 19:30 | NUR ---
PATIENT REPORT GIVEN AT BEDSIDE. PATIENT ENDORSED IN STABLE CONDITION
--- NOTE | 2017-12-16 19:31 | NUR ---
PATIENT REPORT RECEIVED AT BEDSIDE FROM MORNING NURSE. PATIENT IS AWAKE, ALERT AND ORIENTED. NO SIGNS AND SYMPTOMS OF DISTRESS NOTED. PATIENT IS BEDBOUND. NO COMPLAINTS OF PAIN AT THIS TIME. RIJ TLC NOTED; IV FLUID INFUSING WELL. FC IN PLACE DRAINING LIGHT JOE URINE. PATIENT IS ON WOUND BED. PLAN OF CARE DISCUSSED WITH PATIENT. PATIENT VERBALIZED UNDERSTANDING. BED IN LOWEST POSITION, SIDE RAILS UP. AND CALL LIGHT WITHIN REACH. SAFETY, SEIZURE, CONTACT AND ASPIRATION PRECAUTIONS IN PLACE. WILL CONTINUE TO MONITOR
[2017-12-16 20:00] VITALS: BP 92/57
[2017-12-16] MEDS: ATORVASTATIN 20 MG TAB PO SCH (20:36)
[2017-12-16] MEDS: POLYETHYLENE GLYCOL 17 GM/PKT PO SCH (20:44)
[2017-12-16] MEDS: SENNA 8.6 MG TAB PO SCH (20:44)
--- NOTE | 2017-12-16 20:45 | NUR ---
MEDICATION EDUCATION GIVEN. PATIENT VERBALIZED UNDERSTANDING. CARDIZEM HELD DUE TO DECREASED BLOOD PRESSURE. MIRALAX AND SENNA HELD DUE TO PATIENT REFUSAL WELL PATIENT HAVING 2 BOWEL MOVEMENTS DURING PREVIOUS SHIFT. PATIENT TOLERATED WELL. WILL CONTINUE TO MONITOR.
[2017-12-16] MEDS ORDERED: LINEZOLID 600 MG TAB PO SCH ×2 (21:00)
--- NOTE | 2017-12-16 22:00 | NUR ---
PATIENT REFUSED TO BE TURNED AT THIS TIME. EDUCATION GIVEN ON THE IMPORTANCE OF TURNING. PATIENT STATES "NOT RIGHT NOW, LATER PLEASE" WILL CONTINUE TO MONITOR
[2017-12-17] VITALS (7 sets, daily range): BP systolic 89–118; BP diastolic 50–81
--- NOTE | 2017-12-17 | NUR ---
CHECKED ON PATIENT. PATIENT IS ASLEEP. NO SIGNS AND SYMPTOMS OF DISTRESS NOTED. BREATHING EVEN AND UNLABORED. WILL CONTINUE TO MONITOR
--- NOTE | 2017-12-17 04:00 | NUR ---
PATIENT HAD A BOWEL MOVEMENT. PERICARE DONE. WOUND CARE DONE. CHUCKS AND SHEETS CHANGED. PATIENT TOLERATED WELL. WILL CONTINUE TO MONITOR
--- NOTE | 2017-12-17 04:05 | NUR ---
PATIENT REPOSITIONED FOR COMFORT. PATIENT TOLERATED WELL. WILL CONTINUE TO MONITOR
[2017-12-17] MEDS: PIPER/TAZO 3.375GM/D5W PREMIX 50 ML IV SCH ×3 (04:24→21:00)
[2017-12-17] MEDS: MORPHINE TAB ER 15 MG TABER PO SCH ×3 (04:24→21:33)
--- NOTE | 2017-12-17 04:31 | NUR ---
PATIENT COMPLAINING OF PAIN. MS CONTIN DUE. NOTIFIED DR. ALBARRAN OF PATIENT'S BP OF 90/50. DR. ALBARRAN STATED OK TO GIVE MS CONTIN BUT HOLD CARDIZEM PO. WILL CONTINUE TO MONITOR
[2017-12-17] MEDS: DILTIAZEM 60 MG TAB PO SCH ×3 (04:47→21:07)
[2017-12-17 06:40] LABS: BASOPHILS % (AUTO) 0.2 % (0.0-2.0); EOSINOPHILS # (AUTO) 0.2 K/uL (0-0.4); EOSINOPHILS % (AUTO) 2.8 % (0.0-4.0); HEMOGLOBIN 7.9 g/dL (12.0-18.0); LYMPHOCYTES % (AUTO) 22.9 % (20.5-51.1); MEAN CORPUSCULAR HEMOGLOBIN 29 pg (27-31); MEAN CORPUSCULAR HGB CONC 33 g/dL (33-37); MEAN CORPUSCULAR VOLUME 87.6 fL (80-94); MONOCYTES # (AUTO) 0.6 K/uL (0.8-1.0); MONOCYTES % (AUTO) 7.3 % (1.7-9.3); NEUTROPHILS # (AUTO) 5.8 K/uL (1.8-7.7); NEUTROPHILS % (AUTO) 66.8 % (42.2-75.2); PLATELET COUNT (AUTO) 249 K/uL (140-450); RED BLOOD CELL COUNT(AUTO) 2.75 MIL/uL (4.20-6.10); RED CELL DISTRIBUTION WIDTH 18.8 % (11.6-13.7); WHITE BLOOD COUNT (AUTO) 8.7 K/uL (4.8-10.8)
--- NOTE | 2017-12-17 07:21 | NUR ---
PATIENT REPORT GIVEN TO MORNING NURSE AT BEDSIDE FOR CONTINUITY OF CARE. PATIENT IS IN STABLE CONDITION
[2017-12-17 08:42] LABS: CARBON DIOXIDE 30.1 mmol/L (21-32); POTASSIUM 3.1 mmol/L (3.5-5.1)
[2017-12-17] MEDS: FAMOTIDINE 20 MG TAB PO SCH (09:00)
[2017-12-17] MEDS: FUROSEMIDE 40 MG/4 ML VIAL IVP SCH (09:00)
[2017-12-17] MEDS ORDERED: CARISOPRODOL 350 MG TAB PO SCH (09:00)
[2017-12-17] MEDS: MULTIVITAMIN/MINERALS 1 TAB PO SCH (09:00)
[2017-12-17] MEDS: ZINC SULF 220 MG CAP PO SCH (09:00)
[2017-12-17] MEDS: CALCIUM CARB/VIT-D 500 MG/200 IU 1 TAB PO SCH (09:00)
[2017-12-17] MEDS: FERROUS SULFATE 325 MG TABEC PO SCH ×2 (09:00→21:00)
[2017-12-17] MEDS: ASCORBIC ACID 500 MG TAB PO SCH (09:00)
[2017-12-17] MEDS: SIMETHICONE 80 MG TAB.CHEW PO SCH ×4 (09:00→21:12)
[2017-12-17 09:48] LABS: CREATININE 0.2 mg/dL (0.7-1.3)
[2017-12-17 09:52] LABS: MAGNESIUM 1.7 mg/dL (1.8-2.4); PHOSPHORUS 1.9 mg/dL (2.5-4.9)
[2017-12-17] MEDS: HYDROcodone/APAP 10/325 MG 1 TAB TAB PO PRN ×3 (10:25→23:54)
[2017-12-17] MEDS: LACTOBACILLUS RHAMNOSUS GG 1 EACH CAP PO SCH (10:25)
[2017-12-17] MEDS: POTASSIUM CHLORIDE 10 MEQ TABER PO SCH ×2 (10:26→21:08)
[2017-12-17] MEDS: MAGNESIUM OXIDE 400 MG TAB PO SCH ×2 (10:26→21:10)
[2017-12-17] MEDS: levETIRAcetam 500 MG TAB PO SCH ×2 (10:26→21:00)
[2017-12-17] MEDS: LINEZOLID 600 MG TAB PO SCH ×2 (10:26→21:10)
[2017-12-17] MEDS: APIXABAN 2.5 MG TAB PO SCH ×2 (10:27→21:14)
--- NOTE | 2017-12-17 14:45 | NUR ---
WOUND DRESSING CHANGE DONE. PATIENT GIVEN BED BATH. PATIENT TURNED AND REPOSITIONED FOR COMFORT. PATIENT TOLERATED WELL. NO S/S OF DISTRESS NOTED
[2017-12-17] MEDS: THERAHONEY GEL 42.5 GM TP SCH (15:00)
[2017-12-17] MEDS: Z-GUARD PASTE TP SCH (15:00)
--- NOTE | 2017-12-17 15:37 | NUR ---
12/17/17 RD FOLLOW UP COMPLETED PLEASE REFER TO NUTRITION PROGRESS NOTE UNDER CARE ACTIVITY FOR ESTIMATED NUTRITION NEEDS. RD RECOMMENDATIONS: 1. CONTINUE CCHO 60 GM DIET TOLERATED 2. ENCOURAGE INCREASED PO INTAKES PATIENT ONLY MEETING ~40% OF ESTIMATED KCAL AND PROTEIN NEEDS. 3. RD TO ADD DIET [facility] TID FOR ADDITIONAL 600 KCAL AND 21 GM PROTEIN DAILY 4. RD WILL F/U 3-5 DAYS; MODERATE RISK. OMAR TILLMAN RD
--- NOTE | 2017-12-17 16:50 | NUR ---
PATIENT AWAKE IN BED. FAMILY MEMBERS PRESENT AT BEDSIDE. NO S/S OF DISTRESS NOTED
[2017-12-17] MEDS: ACETAMINOPHEN 325 MG TAB PO PRN (18:37)
--- NOTE | 2017-12-17 19:39 | NUR ---
PATIENT REPORT GIVEN TO YARD ASSOCIATE CHARGE NURSE. PATIENT IN STABLE CONDITION
--- NOTE | 2017-12-17 19:40 | NUR ---
RECD. RESTING IN BED, AWAKE, A/OX4. RESPIRATION EVEN AND UNLABORED. IV OF NS AT 50 ML/HR INFUSING, RIGHT IJ TRIPLE LUMEN CENTRAL LINE, WITH DRESSING DRY AND INTACT. BILATERAL PITTING EDEMA +1 NOTED ARMS AND HANDS. F/C PATENT DRAINING CLOUDY LIGHT TEA COLORED URINE. SACRAL WOUND WITH DRESSING DRY AND INTACT. PLAN OF CARE FOR THE SHIFT DISCUSSED. VERBALIZED UNDERSTANDING. DENIES PAIN 0/10.
[2017-12-17] MEDS: POLYETHYLENE GLYCOL 17 GM/PKT PO SCH (21:00)
[2017-12-17] MEDS: ATORVASTATIN 20 MG TAB PO SCH (21:00)
[2017-12-17] MEDS: SENNA 8.6 MG TAB PO SCH (21:12)
--- NOTE | 2017-12-17 21:33 | NUR ---
PO MEDICATIONS FOR THE NIGHT GIVEN. REFUSED SOME MEDICATIONS EVEN IF EXPLANATION GIVEN WHY IT IS NEEDED.
--- NOTE | 2017-12-17 21:55 | NUR ---
Patient's Plan of Care was discussed and reviewed with SEPTIC TANK SERVICER: ANNALISE WASHINGTON
[2017-12-17] MEDS: NACL 0.9% 1,000 ML IV SCH (23:01)
[2017-12-18] VITALS: BP 115/67
--- NOTE | 2017-12-18 01:00 | NUR ---
SLEEPING COMFORTABLY IN BED.
--- NOTE | 2017-12-18 03:30 | NUR ---
REPOSITIONED IN BED BY DUMP MOTORMAN BUT REFUSED. EXPLAINED THAT IS NEEDED. AGREED. NO BM NOTED.
[2017-12-18 05:00] VITALS: BP 110/65
[2017-12-18] MEDS: PIPER/TAZO 3.375GM/D5W PREMIX 50 ML IV SCH ×3 (05:17→21:06)
[2017-12-18] MEDS: DILTIAZEM 60 MG TAB PO SCH ×3 (05:28→21:07)
[2017-12-18] MEDS: MORPHINE TAB ER 15 MG TABER PO SCH ×3 (05:28→21:07)
[2017-12-18 06:18] LABS: HEMATOCRIT 22.9 % (36-52); HEMOGLOBIN 7.6 g/dL (12.0-18.0); MEAN CORPUSCULAR HEMOGLOBIN 29 pg (27-31); MEAN CORPUSCULAR HGB CONC 33 g/dL (33-37); MEAN CORPUSCULAR VOLUME 87.8 fL (80-94); PLATELET COUNT (AUTO) 251 K/uL (140-450); RED BLOOD CELL COUNT(AUTO) 2.61 MIL/uL (4.20-6.10); RED CELL DISTRIBUTION WIDTH 19.2 % (11.6-13.7); WHITE BLOOD COUNT (AUTO) 6.9 K/uL (4.8-10.8)
--- NOTE | 2017-12-18 06:27 | NUR ---
NO BM THIS SHIFT. COMPLAINT OF PAIN ATTENDED PROMPTLY, MEDICATED ORDERED. CONDITION REMAIN STABLE. WILL ENDORSE TO AM NURSE FOR CONTINUITY OF CARE.
[2017-12-18 07:23] LABS: ANION GAP 8.8 (8-16); CARBON DIOXIDE 30.7 mmol/L (21-32); CREATININE 0.3 mg/dL (0.7-1.3); POTASSIUM 3.5 mmol/L (3.5-5.1)
--- NOTE | 2017-12-18 07:24 | NUR ---
ENDORSED TO AM NURSE FOR CONTINUITY OF CARE.
--- NOTE | 2017-12-18 07:25 | NUR ---
RECEIVED PT FROM THE SEGREGATOR NURSE AT BEDSIDE FOR CONTINUITY OF CARE. PT IS SLEEPING. UPDATED THE BOARD. 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 PT IS QUADRIPLEGIC. LAMB CATH. IV ON L HAND 20G AND R IJ, NS AT 50ML INFUSING. PER MD, PT IS TO BE D/C TO SNF TOMORROW TO CONTINUE ABX THERAPY AND WOUND CARE. LBM YESTERDAY.
[2017-12-18 07:34] LABS: MAGNESIUM 1.7 mg/dL (1.8-2.4); PHOSPHORUS 2.8 mg/dL (2.5-4.9)
[2017-12-18 08:00] VITALS: BP 112/73
--- NOTE | 2017-12-18 08:00 | NUR ---
V/S WITHIN NORMAL RANGE. C/O PAIN. WILL SEE WHEN LAST PAIN MEDS WERE GIVEN. WILL CONTINUE TO MONITOR PT.
[2017-12-18] MEDS: CALCIUM CARB/VIT-D 500 MG/200 IU 1 TAB PO SCH (09:00)
[2017-12-18] MEDS: levETIRAcetam 500 MG TAB PO SCH ×2 (09:00→21:06)
[2017-12-18] MEDS: LACTOBACILLUS RHAMNOSUS GG 1 EACH CAP PO SCH (09:00)
[2017-12-18] MEDS: FERROUS SULFATE 325 MG TABEC PO SCH ×2 (09:00→21:00)
[2017-12-18] MEDS: MULTIVITAMIN/MINERALS 1 TAB PO SCH (09:00)
[2017-12-18 09:15] LABS: EOSINOPHILS % (MANUAL) 3 % (0-4); LYMPHOCYTES % (MANUAL) 33 % (20-46); MONOCYTES % (MANUAL) 7 % (5-12)
[2017-12-18] MEDS: FUROSEMIDE 40 MG/4 ML VIAL IVP SCH (09:31)
[2017-12-18] MEDS: FAMOTIDINE 20 MG TAB PO SCH (09:31)
[2017-12-18] MEDS: LINEZOLID 600 MG TAB PO SCH ×3 (09:31→21:10)
[2017-12-18] MEDS: POTASSIUM CHLORIDE 10 MEQ TABER PO SCH ×2 (09:31→21:07)
[2017-12-18] MEDS: ZINC SULF 220 MG CAP PO SCH (09:31)
[2017-12-18] MEDS: MAGNESIUM OXIDE 400 MG TAB PO SCH ×2 (09:32→21:09)
[2017-12-18] MEDS: SIMETHICONE 80 MG TAB.CHEW PO SCH ×4 (09:32→21:00)
[2017-12-18] MEDS: ASCORBIC ACID 500 MG TAB PO SCH (09:32)
[2017-12-18] MEDS: HYDROcodone/APAP 10/325 MG 1 TAB TAB PO PRN ×3 (09:32→22:08)
[2017-12-18] MEDS: APIXABAN 2.5 MG TAB PO SCH ×2 (09:41→21:08)
--- NOTE | 2017-12-18 09:41 | NUR ---
ADMINISTERED MORNING MEDS. PT REFUSED A FEW. WILL RETURN. REQUESTED NORCO FOR PAIN. ADMINISTERED. PT TOLERATED WELL. WILL CONTINUE TO MONITOR PT.
[2017-12-18] MEDS: Z-GUARD PASTE TP SCH (09:44)
[2017-12-18 12:00] VITALS: BP 99/62
[2017-12-18] MEDS: SODIUM PHOS / POTASSIUM PHOS 1 PKT PDR PO SCH ×2 (12:38→16:04)
--- NOTE | 2017-12-18 12:40 | NUR ---
ADMINISTERED SCHEDULED MEDS. PT TOLERATED WELL. WILL CONTINUE TO MONITOR PT.
[2017-12-18] MEDS: THERAHONEY GEL 42.5 GM TP SCH (13:00)
[2017-12-18] MEDS ORDERED: LINEZOLID 600 MG TAB PO SCH (13:00)
--- NOTE | 2017-12-18 13:17 | NUR ---
Coating Machine Helper Note: Per Edwar from [facility] / , she would like to know the frequency of Linezolid; I spoke with regarding this. Per , Linezolid will be twice a day, I informed Edwar of this. Per Edwar, she will check with pharmacy and call me back.
--- NOTE | 2017-12-18 13:50 | NUR ---
CALLED TO PT'S ROOM TO ORALLY SXN LARGE AMT OF THICK YELLOW SECRETIONS, FAMILY AT BEDSIDE
[2017-12-18 16:00] VITALS: BP 94/54
--- NOTE | 2017-12-18 16:05 | NUR ---
PT IS C/O PAIN. GAVE NORCO AND SCHEDULED MEDS. PT TOLERATED WELL. V/S WITHIN NORMAL RANGE. FAMILY AT BEDSIDE. WILL CONTINUE TO MONITOR PT.
[2017-12-18] MEDS: NACL 0.9% 1,000 ML IV SCH (16:09)
--- NOTE | 2017-12-18 18:23 | NUR ---
PT IS SLEEPING. NO SIGNS OF DISTRESS. GIRL FRIEND AT BEDSIDE. DINNER AT SIDE TABLE, UNTOUCHED. WILL CONTINUE TO MONITOR PT.
--- NOTE | 2017-12-18 19:20 | NUR ---
ENDORSED PT TO THE DIP GUIDER STOVES NURSE AT BEDSIDE FOR CONTINUITY OF CARE. PT IS IN STABLE CONDITION.
--- NOTE | 2017-12-18 19:30 | NUR ---
ASSUMED CARE OF PATIENT, AWAKE, ALERT AND ORIENTED. SLEEPING WELL, EASILY AROUSABLE. NO COMPLAINS. CALL LIGHT WITHIN REACH. FAMILY AT BEDSIDE.
--- NOTE | 2017-12-18 20:00 | NUR ---
VITAL SIGNS STABLE. AFEBRILE NOTED. CARE BOARD UPDATED. PLAN OF CARE DISCUSSED WITH PATIENT, VERBALIZED UNDERSTANDING WELL. CALL LIGHT WITHIN REACH.
[2017-12-18] MEDS: ATORVASTATIN 20 MG TAB PO SCH (21:00)
[2017-12-18] MEDS: POLYETHYLENE GLYCOL 17 GM/PKT PO SCH (21:00)
[2017-12-18] MEDS: SENNA 8.6 MG TAB PO SCH (21:00)
--- NOTE | 2017-12-18 21:00 | NUR ---
DUE MEDS GIVEN, SOME MEDS REFUSED AND RETURNED. CALL LIGHT WITHIN REACH.
[2017-12-18 21:50] VITALS: BP 120/80
[2017-12-19 00:23] VITALS: BP 119/74
--- NOTE | 2017-12-19 00:27 | NUR ---
STILL REFUSING DRESSING CHANGE. VITAL SIGNS STABLE. AFEBRILE. NO COMPLAINS. CALL LIGHT WITHIN REACH.
[2017-12-19 04:20] VITALS: BP 124/80
[2017-12-19] MEDS: HYDROcodone/APAP 10/325 MG 1 TAB TAB PO PRN (04:20)
--- NOTE | 2017-12-19 04:21 | NUR ---
PAIN MEDS GIVEN PER REQUEST. NO COMPLAINS. VITAL SIGNS STABLE. AFEBRILE. CALL LIGHT WITHIN REACH.
[2017-12-19] MEDS: PIPER/TAZO 3.375GM/D5W PREMIX 50 ML IV SCH ×2 (05:27→12:24)
[2017-12-19] MEDS: DILTIAZEM 60 MG TAB PO SCH (05:27)
[2017-12-19] MEDS: MORPHINE TAB ER 15 MG TABER PO SCH ×2 (05:28→12:23)
[2017-12-19 06:26] LABS: BASOPHILS % (AUTO) 0.3 % (0.0-2.0); EOSINOPHILS # (AUTO) 0.2 K/uL (0-0.4); EOSINOPHILS % (AUTO) 2.9 % (0.0-4.0); LYMPHOCYTES # (AUTO) 1.8 K/uL (2.0-11.5); LYMPHOCYTES % (AUTO) 22.4 % (20.5-51.1); MEAN CORPUSCULAR HEMOGLOBIN 29 pg (27-31); MEAN CORPUSCULAR HGB CONC 33 g/dL (33-37); MEAN CORPUSCULAR VOLUME 88.2 fL (80-94); MONOCYTES # (AUTO) 0.6 K/uL (0.8-1.0); MONOCYTES % (AUTO) 7.9 % (1.7-9.3); NEUTROPHILS # (AUTO) 5.2 K/uL (1.8-7.7); NEUTROPHILS % (AUTO) 66.5 % (42.2-75.2); PLATELET COUNT (AUTO) 281 K/uL (140-450); RED BLOOD CELL COUNT(AUTO) 2.72 MIL/uL (4.20-6.10); WHITE BLOOD COUNT (AUTO) 7.8 K/uL (4.8-10.8)
--- NOTE | 2017-12-19 07:25 | NUR ---
ENDORSED CARE AT BEDSIDE WITH SEAN RN, PATIENT IN STABLE CONDITION.
--- NOTE | 2017-12-19 07:26 | NUR ---
RECEIVED REPORT FROM PM NURSE AT BEDSIDE. PT SLEEPING AT THIS TIME. NO SIGN OF DISTRESS. ALL SAFETY MEASURE IN PLACE. WILL CONTINUE TO MONITOR PT.
[2017-12-19 07:35] LABS: ANION GAP 10.5 (8-16); CREATININE 0.5 mg/dL (0.7-1.3); POTASSIUM 3.5 mmol/L (3.5-5.1)
[2017-12-19 07:44] LABS: MAGNESIUM 1.8 mg/dL (1.8-2.4); PHOSPHORUS 2.6 mg/dL (2.5-4.9)
[2017-12-19 08:00] VITALS: BP 99/63
[2017-12-19] MEDS ORDERED: DILT60TA94 PO (08:50)
[2017-12-19] MEDS ORDERED: LACT10CA PO (08:50)
[2017-12-19] MEDS ORDERED: MSCON15 PO (08:50)
[2017-12-19] MEDS ORDERED: APIX2.5 PO (08:50)
[2017-12-19] MEDS ORDERED: LAS20I PO (08:50)
[2017-12-19] MEDS ORDERED: LINE600T PO (08:50)
[2017-12-19] MEDS ORDERED: FAMO20TA13 PO (08:50)
[2017-12-19] MEDS ORDERED: PIPE1PDS26 IV (08:52)
[2017-12-19] MEDS: LINEZOLID 600 MG TAB PO SCH ×2 (09:00→09:35)
[2017-12-19] MEDS: APIXABAN 2.5 MG TAB PO SCH (09:00)
[2017-12-19] MEDS: FUROSEMIDE 40 MG/4 ML VIAL IVP SCH (09:00)
--- NOTE | 2017-12-19 09:15 | NUR ---
ADMINISTERED MEDS TO PT. TOLERATED WELL. NO SIGN OF DISTRESS. PT BP ON LOWER END. RAISED THE HOB. ASKED PT TO SIT IN UPRIGHT POSITION. NO SIGN OF DISTRESS. WILL CONTINUE TO MONITOR PT.
[2017-12-19] MEDS: CALCIUM CARB/VIT-D 500 MG/200 IU 1 TAB PO SCH (09:33)
[2017-12-19] MEDS: MAGNESIUM OXIDE 400 MG TAB PO SCH (09:33)
[2017-12-19] MEDS: POTASSIUM CHLORIDE 10 MEQ TABER PO SCH (09:34)
[2017-12-19] MEDS: LACTOBACILLUS RHAMNOSUS GG 1 EACH CAP PO SCH (09:34)
[2017-12-19] MEDS: ZINC SULF 220 MG CAP PO SCH (09:34)
[2017-12-19] MEDS: FAMOTIDINE 20 MG TAB PO SCH (09:34)
[2017-12-19] MEDS: levETIRAcetam 500 MG TAB PO SCH (09:35)
[2017-12-19] MEDS: FERROUS SULFATE 325 MG TABEC PO SCH (09:35)
[2017-12-19] MEDS: MULTIVITAMIN/MINERALS 1 TAB PO SCH (09:35)
[2017-12-19] MEDS: SIMETHICONE 80 MG TAB.CHEW PO SCH ×2 (09:36→12:23)
[2017-12-19] MEDS: ASCORBIC ACID 500 MG TAB PO SCH (09:36)
--- NOTE | 2017-12-19 09:47 | NUR ---
ADMINISTERED MEDS ORDERED TO PT. PH BP 87/45. HELD LASIX . PT HAS BLOOD IN THE LAMB CATHETER . PUT HOLD ON ELIQUIS THIS TIME. NOT IN ROOM. CHARGE NURSE IN MEETING. WILL NOTIFY THEM. WILL CONTINUE TO MONITOR PT.
--- NOTE | 2017-12-19 10:00 | NUR ---
NOTIFIED ABOUT BLOOD IN THE TUBE TO STATES ITS NORMAL PT HAS HX OF CANCER. WILL CONTINUE TO MONITOR PT.
--- NOTE | 2017-12-19 11:13 | NUR ---
[employer] Engineer Note: Per Merritt from [facility] / , patient can return to room 119A anytime, accepting physician is .
[2017-12-19 12:00] VITALS: BP 114/72
[2017-12-19] MEDS: SODIUM PHOS / POTASSIUM PHOS 1 PKT PDR PO SCH (12:23)
--- NOTE | 2017-12-19 15:00 | NUR ---
PT LEFT WITH [facility] AT 1500. REPORT GIVEN TO NURSE NGUYEN AT [facility]. ALL PRESCRIPTION AND DC REPORT WELL PERSONAL BELONGINGS WERE SENT WITH PT WITH [facility] PERSONNEL. PT HAD DRESSING CHANGED. PT IN STABLE CONDITION AT THE TIME OF DISCHARGE.
== END 2017-12-19 15:00 | DRG 720 ==
LOC: MED 13:22 → MTU 16:55 → MMU 12-11 16:22
PROVIDERS: ADMIT General Practice; ATTEND General Practice
PROC: 02HV33Z Insertion of Infusion Device into Superior Vena Cava, Percutaneous Approach (ICD-10-PCS; 2017-12-10)
PROC: B548ZZA Ultrasonography of Superior Vena Cava, Guidance (ICD-10-PCS; 2017-12-10)
PROC: 0JB70ZZ Excision of Back Subcutaneous Tissue and Fascia, Open Approach (ICD-10-PCS; principal; 2017-12-12)
DX: A41.9 Sepsis, unspecified organism (principal); N17.0 Acute kidney failure with tubular necrosis; J69.0 Pneumonitis due to inhalation of food and vomit; G82.50 Quadriplegia, unspecified; L89.154 Pressure ulcer of sacral region, stage 4; E43 Unspecified severe protein-calorie malnutrition; I48.92 Unspecified atrial flutter; C34.90 Malignant neoplasm of unspecified part of unspecified bronchus or lung; E87.8 Other disorders of electrolyte and fluid balance, not elsewhere classified; E87.1 Hypo-osmolality and hyponatremia; F11.20 Opioid dependence, uncomplicated; I48.0 Paroxysmal atrial fibrillation; D64.9 Anemia, unspecified; F10.21 Alcohol dependence, in remission; D50.9 Iron deficiency anemia, unspecified; N39.0 Urinary tract infection, site not specified; R65.20 Severe sepsis without septic shock; E87.6 Hypokalemia; E78.5 Hyperlipidemia, unspecified; Z88.2 Allergy status to sulfonamides; Z88.8 Allergy status to other drugs, medicaments and biological substances; G40.909 Epilepsy, unspecified, not intractable, without status epilepticus; Z91.19 Patient's noncompliance with other medical treatment and regimen; R31.9 Hematuria, unspecified; E05.90 Thyrotoxicosis, unspecified without thyrotoxic crisis or storm; E83.42 Hypomagnesemia; Z86.718 Personal history of other venous thrombosis and embolism; E83.39 Other disorders of phosphorus metabolism; M86.9 Osteomyelitis, unspecified; B96.5 Pseudomonas (aeruginosa) (mallei) (pseudomallei) as the cause of diseases classified elsewhere; B95.2 Enterococcus as the cause of diseases classified elsewhere
CPT/HCPCS: 36415; 36600; 71045; 71275; 76536; 80048; 80053; 80202; 80305; 81001; 82150; 82550; 82553; 82728; 82803; 82948; 83036; 83540; 83605; 83690; 83735; 83874; 83880; 84100; 84134; 84436; 84439; 84443; 84479; 84484; 85025; 85045; 85379; 85610; 85730; 86886; 86900; 86901; 87040; 87070; 87075; 87081; 87086; 87186; 87205; 88304; 89220; 93005; 93970; 94640; 96365; 96375; 97799; 99285; J1170; J1200; J1642; J1644; J1940; J2001; J2060; J2270; J2543; J2916; J3010; J3370; J3475; J3480; J3490; J7030; J7060; J7620; Q0092; Q9967